=== PATIENT | female | born 1970 | race Caucasian/White ===

== ENCOUNTER 2023-01-18 19:50 | Outpatient (CLI) | payer SELFPAY | END 2023-01-18 19:51 | disposition home or self-care (01) | LOC: AMB 02-03 12:22 | PROVIDERS: PCP Family Medicine; Visit Provider Family Medicine | DX: S39.92XA Unspecified injury of lower back, initial encounter (principal); V43.52XA Car driver injured in collision with other type car in traffic accident, initial encounter; Y92.410 Unspecified street and highway as the place of occurrence of the external cause | CPT/HCPCS: A0998 ==

== ENCOUNTER 2023-10-28 15:03 | Outpatient (CLI) | payer BC, SELFPAY | END 2023-10-28 15:04 | disposition home or self-care (01) | PROVIDERS: PCP Family Medicine; Visit Provider Nurse Practitioner Family | DX: R00.2 Palpitations (principal); R60.0 Localized edema; Z13.220 Encounter for screening for lipoid disorders; R05.8 Other specified cough | CPT/HCPCS: 83735; 84443; 85025 ==

== ENCOUNTER 2023-11-14 14:44 | Outpatient (CLI) | payer BC, SELFPAY | END 2023-11-14 14:45 | disposition home or self-care (01) | LOC: RAD 14:45 | PROVIDERS: PCP Family Medicine; Visit Provider Nurse Practitioner Family | DX: R07.89 Other chest pain (principal); I51.7 Cardiomegaly; R00.2 Palpitations | CPT/HCPCS: 93306 ==

== ENCOUNTER 2024-06-23 13:28 | Outpatient (CLI) | payer BC, SELFPAY | END 2024-06-23 13:29 | disposition home or self-care (01) | PROVIDERS: PCP Nurse Practitioner Family; Visit Provider Nurse Practitioner Family | DX: Z13.228 Encounter for screening for other metabolic disorders (principal); Z13.0 Encounter for screening for diseases of the blood and blood-forming organs and certain disorders involving the immune mechanism | CPT/HCPCS: 80053; 85025 ==

== ENCOUNTER 2024-07-06 08:16 | Day surgery (SDC) | payer BC, SELFPAY ==
[2024-07-06] VITALS (12 sets, daily range): BP systolic 113–133; BP diastolic 65–92; PULSE 68–85; RESP 12–16; TEMP 36.2–36.8; O2SAT 92–98; BMI 35.9
[2024-07-06] MEDS: 0.9 % SODIUM CHLORIDE 500 ML 500 ML IV (08:55)
--- NOTE | 2024-07-06 08:55 | W.PM.H&PU ---
History & Physical Update History & Physical Update H&P Reviewed and patient assessed: No changes noted
[2024-07-06] MEDS: SODIUM CHLORIDE 0.9 % (FLUSH) 10 ML SYRINGE IVF (08:57)
--- NOTE | 2024-07-06 09:10 | PM.GSPRC ---
Operative Note Date of procedure: 07/06/24 Pre-op diagnosis: 1. Symptomatic right shoulder mass. Post-op diagnosis: 1. Right shoulder lipoma. Type of Procedure: 1. Excision of right shoulder lipoma with complex incisional closure. Indications: 54-year-old female was seen in clinic for evaluation of an enlarging right shoulder mass. She was initially evaluated with this mass 2 years ago but did not proceed with surgery. In the last couple years the mass has significantly grown in size. Patient complained of pain sleeping on the right shoulder. She also felt like certain positions cause numbness for her right arm. On clinical exam over the superior right shoulder joint there was a 12 cm in diameter soft tissue mass. This felt soft and not fluid filled, and had limited mobility. This was suspected to be a lipoma. Given patient's clinical history her physical exam, excision of the right shoulder mass in the operating room was recommended. The procedure was discussed in detail. The risks associated procedure including infection, bleeding, and the need for additional procedures as well seroma were all discussed with the patient, and she agreed to proceed. Procedure Description: After discussing the risks and benefits of the procedure, the patient signed informed consent.? The operative site was marked and the patient was brought to the operating room. The patient was then intubated by anesthesia.??She was then placed on the operating table in the lateral decubitus position.? Care was taken to pad the patient's pressure points.? The operative site was then prepped and draped in the usual sterile fashion.? A time-out was then performed. Local anesthetic was injected over the surgical site. A horizontal elliptical skin incision was made with a scalpel over the right shoulder mass. Dermis and subcutaneous fat were divided with cautery. The mass was then circumferentially dissected off surrounding subcutaneous fat and off the shoulder joint and muscle fascia with cautery. Hemostasis achieved with cautery and Vicryl ties. When the mass was free, it was removed. It was measuring 12 x 10.5 cm. The mass had an appearance of lipoma. It was sent to pathology. Skin flaps were then developed anteriorly and posteriorly with cautery. Then local anesthetic was injected the surgical site. The incision was then closed in layers with interrupted 2-0 in 3-0 Vicryl sutures. The length of the incision was 17 cm. The skin was closed with a running 4-0 Monocryl stitch. Steri-Strips and sterile pressure dressings were placed over the incision, and the dressings were secured in place with tape. All counts were correct at the end of the case. ? The patient was then woken and transported to the recovery area in stable condition. ? The patient tolerated the procedure well. Findings: Large lipoma Anesthesia: GETA Surgeon: Dior Cooney MD Estimated blood loss (mL): 10 Additional Specimen Information: 1. Right shoulder mass. Condition: stable Disposition: PACU
[2024-07-06] MEDS: CEFAZOLIN 2 GM INJ IVP (09:30)
[2024-07-06] MEDS: LIDOCAINE 1%-EPI 1:100,000 20 ML INFILTRATI (10:03)
[2024-07-06] MEDS: BUPIVACAINE 0.25% 30 ML INJECTION (10:03)
--- NOTE | 2024-07-06 10:40 | W.ANESCHARGE ---
Anesthesia Charges Start Date/Time Anesthesia Start Date: 07/06/24 Anesthesia Start Time: 09:15 Stop Date/Time Anesthesia Stop Date: 07/06/24 Anesthesia Stop Time: 10:41
--- NOTE | 2024-07-06 11:13 | SUR.PHASEI ---
patient met discharge criteria per anesthesia
[2024-07-06] MEDS: HYDROCODONE-ACETAMIN 5-325 MG 1 TAB PO (11:53)
== END 2024-07-06 12:38 | disposition home or self-care (01) ==
PROVIDERS: PCP Nurse Practitioner Family; Visit Provider Surgery
PROC: (CPT 23071; principal; 2024-07-06 09:30)
DX: D17.21 Benign lipomatous neoplasm of skin and subcutaneous tissue of right arm (principal)
CPT/HCPCS: 23071; 00400; 88304; A9270; J0665; J0690; J1100; J2250; J2405; J2704; J3010; J3490; J7030

== ENCOUNTER 2024-09-21 09:35 | Outpatient (CLI) | payer BC, SELFPAY | END 2024-09-21 09:36 | disposition home or self-care (01) | PROVIDERS: PCP Nurse Practitioner Family; Visit Provider Nurse Practitioner Family | DX: E66.9 Obesity, unspecified (principal); M79.606 Pain in leg, unspecified; R20.2 Paresthesia of skin | CPT/HCPCS: 82550; 82607; 85651; 86140 ==

== ENCOUNTER 2024-11-02 09:48 | Outpatient (CLI) | payer BC, SELFPAY ==
[2024-11-05 00:24] LABS: HPV Source Vaginal; HPV, High Risk by TMA Not Detected
== END 2024-11-02 09:49 | disposition home or self-care (01) ==
PROVIDERS: PCP Nurse Practitioner Family; Visit Provider Nurse Practitioner Family
DX: Z12.4 Encounter for screening for malignant neoplasm of cervix (principal); Z11.51 Encounter for screening for human papillomavirus (HPV)
CPT/HCPCS: 87624; 87625; 88141; 88142

== ENCOUNTER 2024-11-17 10:45 | Outpatient (CLI) | payer BC, SELFPAY ==
--- NOTE | 2024-11-17 10:45 | CRLHL7_ITS ---
For Patients: As a result of the Century Cures Act, medical imaging exams and procedure reports are released immediately into your electronic medical record. You may view this report before your referring provider. If you have questions, please contact your health care provider. DIGITAL DIAGNOSTIC BILATERAL MAMMOGRAM USING TOMOSYNTHESIS AND COMPUTER-AIDED DETECTION RIGHT BREAST ULTRASOUND CLINICAL HISTORY: RIGHT breast lump. COMPARISON: None. TECHNIQUE: Digital BILATERAL mammogram in four projections with computer-aided detection. Tomosynthesis was used in this interpretation. Real-time ultrasound imaging of RIGHT breast with imaging documentation. Scanning was performed by both the technologist and the radiologist. BREAST COMPOSITION: The breasts are heterogeneously dense, which may obscure small masses. FINDINGS: 3D CC/MLO BILATERAL mammogram images submitted. Spiculated mass within the medial RIGHT breast is noted with associated skin retraction. Unremarkable LEFT breast mammogram images. Targeted RIGHT breast ultrasound performed. At 3 o`clock 7 cm from the nipple there is a spiculated hypoechoic mass which measures 2.5 x 2.3 x 2.0 cm. A small adjacent hypoechoic masses present measuring less than 1 cm. There is a RIGHT axillary lymph node with cortical thickening present with the cortex measuring up to 4 millimeters. IMPRESSION: Suspicious mass RIGHT breast 3 o`clock 7 cm from the nipple measuring 2.5 cm with a small adjacent satellite lesion. Suspicious RIGHT axillary lymph node. RECOMMENDATIONS: Ultrasound-guided biopsy of both breast lesions and the RIGHT axillary lymph node. A lay language report of this examination will be provided to the patient. BI-RADS Category 5: Highly suggestive of malignancy Dictated by Ata Quezada MD @ 11/17/2024 12:08:31 PM jj/Dictated by: Ata Quezada MD @ 11/17/2024 12:08:00 PM (Electronically Signed)
--- NOTE | 2024-11-17 11:15 | CRLHL7_ITS ---
For Patients: As a result of the Cures Act, medical imaging exams and procedure reports are released immediately into your electronic medical record. You may view this report before your referring provider. If you have questions, please contact your health care provider. SEE DIGITAL DIAGNOSTIC BILATERAL MAMMOGRAM PERFORMED SAME DAY CRL:mirna bradley/Dictated by: Ata Quezada MD @ 11/17/2024 12:08:00 PM (Electronically Signed)
== END 2024-11-17 10:46 | disposition home or self-care (01) ==
PROVIDERS: PCP Nurse Practitioner Family; Visit Provider Nurse Practitioner Family
DX: N63.10 Unspecified lump in the right breast, unspecified quadrant (principal); R92.333 Mammographic heterogeneous density, bilateral breasts
CPT/HCPCS: 76642; 77066; G0279

== ENCOUNTER 2024-11-20 15:37 | Outpatient (CLI) | payer BC, SELFPAY ==
--- NOTE | 2024-11-20 16:00 | CRLHL7_ITS ---
For Patients: As a result of the Century Cures Act, medical imaging exams and procedure reports are released immediately into your electronic medical record. You may view this report before your referring provider. If you have questions, please contact your health care provider. Indication: fullness of neck, sick/cold for multiple weeks, pain/difficulty while swallowing, voice change Technique: Grayscale and color Doppler ultrasound of the neck soft tissues performed bilaterally. Comparison: None Findings: Mildly prominent right submandibular lymph node measures 12 x 6 x 14 millimeters. No abnormal vascularity. Central fatty hilum is present. No abscess. No enlarged lymph nodes left neck. Impression: Likely reactive right submandibular lymph node. Dictated by Ata Quezada MD @ 11/22/2024 4:40:04 PM (Electronically Signed)
== END 2024-11-20 15:38 | disposition home or self-care (01) ==
LOC: US 15:38
PROVIDERS: PCP Nurse Practitioner Family; Visit Provider Nurse Practitioner Family
DX: R59.9 Enlarged lymph nodes, unspecified (principal); M54.2 Cervicalgia; R13.10 Dysphagia, unspecified
CPT/HCPCS: 76536

== ENCOUNTER 2024-11-27 10:12 | Outpatient (CLI) | payer BC, SELFPAY ==
--- NOTE | 2024-11-27 10:15 | CRLHL7_ITS ---
For Patients: As a result of the Century Cures Act, medical imaging exams and procedure reports are released immediately into your electronic medical record. You may view this report before your referring provider. If you have questions, please contact your health care provider. ULTRASOUND-GUIDED CORE NEEDLE BREAST BIOPSY OF TWO SITES AND POST-BIOPSY DIGITAL MAMMOGRAM FOR BIOPSY MARKER PLACEMENT CLINICAL HISTORY: Indeterminate hypoechoic lesions RIGHT breast. COMPARISON STUDIES: 11/20/2024. TECHNIQUE: Real-time ultrasound with image documentation was used for targeting the breast lesions. A core needle biopsy system was used to obtain core tissue samples with a 16 gauge needle. Post-biopsy CC and ML digital mammograms were obtained to document position of the biopsy marker. CONSENT and TIME OUT: The procedure, risks, and alternatives were explained to the patient and a consent was signed. [place] Protocol was followed including pre-procedure verification that relevant information/documentation was available, reviewed and properly matched to the patient; consent accurate and complete; and equipment and supplies available. Time Out was conducted just prior to starting procedure to verify the four required elements: patient identity, correct side/site marked (if applicable), procedure, relevant images/results properly labeled and displayed (if applicable). PROCEDURE: All biopsies were performed in a similar manner. The patient was positioned supine on the ultrasound table. The breast was prepped with Betadine. 8 cc of 1 percent lidocaine used for local anesthesia. Core samples were obtained. A sterile metal biopsy clip was placed percutaneously to lindsay the lesion position within the breast. The specimens were placed in 10% formalin and sent to the Pathology Department. Pressure was held on the biopsy site until all bleeding subsided. The skin incision was closed with Steri-Strips. An ice pack was positioned over the biopsy site. The patient tolerated the procedure well. Post-biopsy instructions were reviewed with the patient, and a written copy was given to her. SITE A: LATERALITY: RIGHT breast. LESION: Solid irregular hypoechoic mass measuring 2.5 x 2.3 x 2.0 cm at 3 o`clock, 7 cm from the nipple. SUSPICION: High. NUMBER OF SAMPLES: 5. BIOPSY CLIP SHAPE: Oval. PROXIMITY OF CLIP TO TARGET: Within the lesion. SITE B: LATERALITY: RIGHT breast. LESION: Solid hypoechoic nodule measuring 7 x 7 x 6 mm at 2 o`clock, 7 cm from the nipple. SUSPICION: High. NUMBER OF SAMPLES: 5. BIOPSY CLIP SHAPE: HydroMARK. PROXIMITY OF CLIP TO TARGET: Within the lesion. DISTANCE BETWEEN: Sites A and B: 6 mm. IMPRESSION: Ultrasound-guided breast biopsy of two sites. When the pathology report is available, an addendum to this report will be made. ACR not applicable Dictated by Ata Quezada MD @ 11/27/2024 12:23:43 PM /sp SP/Dictated by: Ata Quezada MD @ 11/27/2024 12:23:00 PM (Electronically Signed)
--- NOTE | 2024-11-27 10:15 | CRLHL7_ITS ---
For Patients: As a result of the Century Cures Act, medical imaging exams and procedure reports are released immediately into your electronic medical record. You may view this report before your referring provider. If you have questions, please contact your health care provider. ULTRASOUND-GUIDED RIGHT AXILLARY LYMPH NODE BIOPSY CLINICAL HISTORY: Indeterminate right axillary lymph node COMPARISON STUDIES: 11/20/2024 TECHNIQUE: Real-time ultrasound with image documentation was used for targeting the right axillary lesion. Core biopsy specimens were obtained using an automated gun with an 18-gauge biopsy needle. CONSENT and TIME OUT: The procedure, risks, and alternatives were explained to the patient and a consent was signed. [place] Protocol was followed including pre-procedure verification that relevant information/documentation was available, reviewed and properly matched to the patient; consent accurate and complete; and equipment and supplies available. Time Out was conducted just prior to starting procedure to verify the four required elements: patient identity, correct side/site marked (if applicable), procedure, relevant images/results properly labeled and displayed (if applicable). PROCEDURE: The patient was positioned supine on the ultrasound table. The breast was prepped with ChloraPrep. 8 cc of 1 percent lidocaine used for anesthesia. Core samples were obtained. A sterile metal biopsy clip was placed percutaneously to lindsay the lesion position within the right axilla. The specimens were placed in 10% formalin and sent to the pathology department. Pressure was held on the biopsy site until all bleeding subsided. The skin incision was closed with Steri-Strips. An ice pack was positioned over the biopsy site. Post-biopsy instructions were reviewed with the patient, and a written copy was given to her. LATERALITY: Right axilla LESION: Right axillary lymph node measures 9 x 8 x 9 millimeters with focal cortical thickening which measures up to 5 millimeters SUSPICION FOR MALIGNANCY: High NUMBER OF SAMPLES: 5 BIOPSY CLIP SHAPE: Oval PROXIMITY OF CLIP TO TARGET: Within the lesion IMPRESSION: Ultrasound-guided right axillary lymph node biopsy. When the pathology report is available, an addendum to this report will be made. ACR not applicable Dictated by Ata Quezada MD @ 11/27/2024 12:26:18 PM (Electronically Signed)
--- NOTE | 2024-11-27 11:00 | CRLHL7_ITS ---
For Patients: As a result of the Century Cures Act, medical imaging exams and procedure reports are released immediately into your electronic medical record. You may view this report before your referring provider. If you have questions, please contact your health care provider. PLEASE SEE RIGHT BREAST ULTRASOUND-GUIDED BIOPSIES OF SAME DAY. CRL:sp SP/Dictated by: Ata Quezada MD @ 11/27/2024 12:14:00 PM (Electronically Signed)
== END 2024-11-27 10:13 | disposition home or self-care (01) ==
LOC: US 10:12
PROVIDERS: PCP Nurse Practitioner Family; Visit Provider Nurse Practitioner Family
DX: N63.10 Unspecified lump in the right breast, unspecified quadrant (principal); C50.911 Malignant neoplasm of unspecified site of right female breast; C77.3 Secondary and unspecified malignant neoplasm of axilla and upper limb lymph nodes; R92.8 Other abnormal and inconclusive findings on diagnostic imaging of breast
CPT/HCPCS: 19083; 19084; 38505; 76942; 77065; 88305; 88341; 88342; 88360; 88361; 88377; A4648; A4649

== ENCOUNTER 2024-12-07 08:09 | Outpatient (CLI) | payer BC, SELFPAY ==
--- NOTE | 2024-12-07 08:15 | CRLHL7_ITS ---
For Patients: As a result of the 21st Century Cures Act, medical imaging exams and procedure reports are released immediately into your electronic medical record. You may view this report before your referring provider. If you have questions, please contact your health care provider. BILATERAL BREAST MRI WITHOUT AND WITH GADOLINIUM CLINICAL HISTORY: 54-year-old female with newly diagnosed right breast cancer. Diagnosis was obtained from ultrasound biopsy at the right breast 3 o`clock position 7 cm from nipple measuring 2.5 x 2.3 x 2 centimeters. Oval shaped clip is placed on target A 2nd site measuring 0.7 x 0.7 x 0.6 centimeters 2 o`clock position 7 cm from nipple HydroMARK clip on target. Both biopsies yielded invasive ductal carcinoma. Additionally ultrasound biopsy of an axillary node demonstrates metastatic carcinoma. INDICATION FOR BREAST MRI: Staging of newly diagnosed breast cancer and screening of contralateral breast. Regional lymph nodes will also be assessed. COMPARISON STUDIES: Mammograms 11/17/2024 ultrasound 11/27/2024 CONTRAST: mL Clariscan IV. TECHNIQUE: The patient was positioned prone using a breast coil. Multiple imaging sequences were obtained using 1-1.5 mm thick slices with no gap. The image sequences include T2-weighted STIR in the axial plane, T1-weighted nonfat-saturated gradient echo in the axial plane, pre- and post-contrast T1-weighted FLASH 3D with fat suppression in the axial plane, and T1-weighted FLASH high resolution 3D with fat suppression in the sagittal plane. Image post-processing was performed on a [employer] workstation. Complex 3D rendering including maximum intensity projections (MIPS) and volumetric renderings were obtained to optimize visualization of the extent of pathology and relationship to the nipple, skin, and chest wall. This aids in determining feasibility of breast conservation surgery. Subtraction, multiplanar reconstruction, mean curve determination, and angiogenesis mapping were also performed. The study was technically adequate. FINDINGS: Amount of Fibroglandular Tissue: Heterogeneous fibroglandular tissue. Breast Background Enhancement: Moderate RIGHT Breast: Irregular marginated enhancing mass spanning 3.8 by 3.4 x 2.7 centimeters with heterogeneous enhancement kinetics to include rapid uptake and washout of contrast in the posterior breast around the 3 o`clock position. The oval shaped biopsy clip is along the posterior aspect of this mass. The HydroMARK clip from the 2 o`clock position biopsy is difficult to identify. Findings most likely include both biopsied cancers. There is nipple retraction. LEFT Breast: No suspicious enhancement. Lymph Nodes: Biopsied right axillary lymph node measures 7 millimeters short axis with clip present. Cortex demonstrates slight nodular thickening. A few additional indeterminate axillary lymph nodes are seen measuring 1.7 centimeters by short axis with slight borderline nodular cortical thickening just posterior to the biopsied lymph node /. Additionally superior to the biopsied lymph node is 1.3 centimeter short axis lymph node indeterminate with borderline thickened cortex. No abnormal morphology left axillary lymph nodes IMPRESSIONS AND RECOMMENDATIONS: 1. Irregular marginated enhancing mass spanning 3.8 x 3.4 x 2.7 centimeters in the right breast 3 o`clock position posterior depth most likely reflects the 2 biopsied cancer. The clip from the 2 o`clock biopsy is poorly seen. On review of the mammogram there is segmental pleomorphic microcalcifications extending from the mass to the skin spanning approximately 9 centimeters. If this will exchange consultant additional diagnostic mammographic views and stereotactic biopsy would be recommended. 2. 7 millimeter short axis right axillary lymph node reflects the biopsied lymph node with slight nodular cortical thickening. Two additional indeterminate lymph nodes with borderline thickened cortex. 2. No suspicious findings in the left breast. No abnormal morphology axillary lymph nodes. Surgical and oncologic management per referring physician. BI-RADS Category 6 Dictated by Steffi Hayden MD @ 12/07/2024 11:44:37 AM (Electronically Signed)
== END 2024-12-07 08:10 | disposition home or self-care (01) ==
LOC: MRI 08:10
PROVIDERS: PCP Nurse Practitioner Family; Visit Provider Surgery
DX: C50.811 Malignant neoplasm of overlapping sites of right female breast (principal); C77.3 Secondary and unspecified malignant neoplasm of axilla and upper limb lymph nodes
CPT/HCPCS: 77049; A9575

== ENCOUNTER 2024-12-23 08:07 | Outpatient (CLI) | payer BC, SELFPAY ==
--- NOTE | 2024-12-23 08:00 | CRLHL7_ITS ---
For Patients: As a result of the Century Cures Act, medical imaging exams and procedure reports are released immediately into your electronic medical record. You may view this report before your referring provider. If you have questions, please contact your health care provider. INDICATION: Breast cancer. Comparison : PET-CT scan dated 17 December 2024. Technique : Pelvic MRI with T1, T2, and postcontrast images. Intravenous gadolinium administered. Findings : 4.7 x 4.5 x 4.2 cm fibroid in the left side of the body of the uterus. The uterus is otherwise unremarkable. Normal thickness of the endometrial stripe. 2.4 cm right ovarian fatty lesion shows mild heterogeneous peripheral enhancement. Normal appearance of the left ovary. No other pelvic masses. No adenopathy. No other bony or soft tissue abnormalities identified. Impression : 1. 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 2. 4.7 cm uterine fibroid. Dictated by Phani Hayden MD @ 12/24/2024 2:25:22 PM (Electronically Signed)
== END 2024-12-23 08:08 | disposition home or self-care (01) ==
LOC: MRI 08:09
PROVIDERS: PCP Nurse Practitioner Family; Visit Provider Internal Medicine Hematology & Oncology
DX: C50.919 Malignant neoplasm of unspecified site of unspecified female breast (principal); D25.9 Leiomyoma of uterus, unspecified; Z17.421 Hormone receptor negative with human epidermal growth factor receptor 2 negative status; Z01.818 Encounter for other preprocedural examination
CPT/HCPCS: 72197; 93306; A9575

== ENCOUNTER 2024-12-28 06:12 | Day surgery (SDC) | payer BC, SELFPAY ==
[2024-12-28] VITALS (8 sets, daily range): BP systolic 126–155; BP diastolic 81–104; PULSE 58–68; RESP 16; TEMP 36.4–36.5; O2SAT 95–97; BMI 35.2
[2024-12-28] MEDS: SODIUM CHLORIDE 0.9 % (FLUSH) 10 ML SYRINGE IVF (06:30)
[2024-12-28] MEDS: LACTATED RINGERS 1000 ML 1,000 ML 100 ML IV (06:30)
--- NOTE | 2024-12-28 07:30 | CRLHL7_ITS ---
For Patients: As a result of the Century Cures Act, medical imaging exams and procedure reports are released immediately into your electronic medical record. You may view this report before your referring provider. If you have questions, please contact your health care provider. Indication: Abram Cath Placement Technique: AP fluoroscopic image of the chest. Fluoroscopic time 43.8 seconds. IMPRESSION: Fluoroscopic guidance for Port-A-Cath placement. Dictated by Ata Quezada MD @ 12/28/2024 8:49:56 AM (Electronically Signed)
[2024-12-28] MEDS: CEFAZOLIN 1 GM inj IVP (07:48)
[2024-12-28] MEDS: 0.9% SODIUM CHL 50 ML VIAL INJECTION (08:20)
[2024-12-28] MEDS: HEPARIN 500 UNIT/5 ML SYRINGE IVF (08:22)
[2024-12-28] MEDS: LIDOCAINE 1% MDV 20 ML INJECTION (08:25)
[2024-12-28] MEDS: BUPIVACAINE 0.5% 30 ML INJECTION (08:25)
--- NOTE | 2024-12-28 08:32 | CRLHL7_ITS ---
For Patients: As a result of the Century Cures Act, medical imaging exams and procedure reports are released immediately into your electronic medical record. You may view this report before your referring provider. If you have questions, please contact your health care provider. INDICATION: Postop Port-A-Cath TECHNIQUE: Chest 1 view COMPARISON: 06/23/2024 FINDINGS: Left IJ approach Port-A-Cath is present with the tip at the cavoatrial junction. No pneumothorax. No pleural effusion. IMPRESSION: Port-A-Cath placement. No pneumothorax. Dictated by Ata Quezada MD @ 12/28/2024 11:16:17 AM (Electronically Signed)
--- NOTE | 2024-12-28 08:34 | W.PM.H&PU ---
History & Physical Update History & Physical Update H&P Reviewed and patient assessed: No changes noted H&P Updates: Belinda is here today for port placement. No updates to her health history. Imaging and chart reviewed. No blood thinners. Risks and benefits discussed.
--- NOTE | 2024-12-28 08:35 | PM.GSPRC ---
Operative Note Date of procedure: 12/28/24 Pre-op diagnosis: Right-sided triple negative breast cancer Post-op diagnosis: Same Type of Procedure: Left IJ power port placement with ultrasound and fluoroscopic guidance Indications: The patient is a 54-year-old female with a new diagnosis of right-sided triple negative breast cancer. Port placement was requested for administration of chemotherapy. After discussion of risks and benefits, the patient agreed to proceed. Procedure Description: After discussing the risks and benefits of the procedure, the patient signed informed consent.? The operative site was marked and the patient was brought to the operating room and placed on the operating table in supine position.? Care was taken to pad the patient's pressure points.?? The patient was then given sedation by anesthesia.?? The operative site was then prepped and draped in the usual sterile fashion.? A time-out was then performed. The patient's left internal jugular vein was visualized using ultrasound. Local anesthetic was injected into the skin overlying the vein. This was accessed percutaneously using ultrasound guidance. Using Seldinger technique, a guidewire was threaded through the needle. A skin alfonso was made around the wire. Next, local anesthetic was injected into the skin below the clavicle and along the proposed tract to the neck incision. A skin incision was then made with a 15 blade and a pocket created in the subcutaneous tissue with cautery. A tunneler was then used to thread the catheter from the chest wall pocket to the neck incision. Once this was done fluoroscopy was brought into the field. Over the wire the tract was dilated using fluoroscopy. The wire and the dilator were then removed leaving the sheath in the vein. Through this, the catheter was threaded. Using fluoroscopy, the catheter was positioned into the distal SVC. The catheter was noted to flush and aspirate easily. The catheter was then connected to the port. The port was placed in the pocket and secured in place with 2 0 Prolene sutures. It was noted to flush and aspirate easily. This was then locked with heparinized saline. The skin was closed with absorbable suture. Glue was applied. Instrument sponge and needle counts were correct at the end of the case. The patient was woken and taken to the PACU in stable condition. The patient tolerated the procedure well. Findings: Left IJ power port placed in the low SVC Implants: Power port Anesthesia: MAC Surgeon: Vannessa Mtz MD Estimated blood loss (mL): 5 Condition: stable Disposition: same day
--- NOTE | 2024-12-28 08:59 | P.ANES_ITS ---
Anesthesia Charges Start Date/Time Anesthesia Start Date: 12/28/24 Anesthesia Start Time: 07:29 Stop Date/Time Anesthesia Stop Date: 12/28/24 Anesthesia Stop Time: 08:42 Coding CPT Codes CPT Codes: ANESTH VASCULAR ACCESS - 46149 ([id number]) P2 - PATIENT W/MILD SYST DISEASE, QX - DYNAMITE PACKING MACHINE FEEDER SVC W/ MD MED DIRECTION, QK - PASTE MIXING SUPERVISOR 2-4 CNCRNT ANES PROC
--- NOTE | 2024-12-28 08:59 | W.ANESCHARGE ---
Anesthesia Charges Start Date/Time Anesthesia Start Date: 12/28/24 Anesthesia Start Time: 07:29 Stop Date/Time Anesthesia Stop Date: 12/28/24 Anesthesia Stop Time: 08:42 Coding CPT Codes CPT Codes: ANESTH VASCULAR ACCESS - 98876 ([id number]) P2 - PATIENT W/MILD SYST DISEASE, QX - EXTENSION WORK DIRECTOR SVC W/ MD MED DIRECTION, QK - SALES PORTER 2-4 CNCRNT ANES PROC
--- NOTE | 2024-12-28 09:16 | P.ANES_ITS ---
Anesthesia Charges Start Date/Time Anesthesia Start Date: 12/28/24 Anesthesia Start Time: 07:29 Stop Date/Time Anesthesia Stop Date: 12/28/24 Anesthesia Stop Time: 08:42 Coding CPT Codes CPT Codes: ANESTH VASCULAR ACCESS - 68543 ([id number]) QK - TOW BAR DRIVER 2-4 CNCRNT ANES PROC, QX - ASSISTANT SVC W/ MD MED DIRECTION, P2 - PATIENT W/MILD SYST DISEASE
--- NOTE | 2024-12-28 09:16 | W.ANESCHARGE ---
Anesthesia Charges Start Date/Time Anesthesia Start Date: 12/28/24 Anesthesia Start Time: 07:29 Stop Date/Time Anesthesia Stop Date: 12/28/24 Anesthesia Stop Time: 08:42 Coding CPT Codes CPT Codes: ANESTH VASCULAR ACCESS - 50422 ([id number]) QK - ASSIGNMENT EDITOR 2-4 CNCRNT ANES PROC, QX - PICK AND SHOVEL WORKER SVC W/ MD MED DIRECTION, P2 - PATIENT W/MILD SYST DISEASE
[2024-12-28] MEDS: fentaNYL 100 MCG/2 ML inj 50 MCG IVP (09:22)
[2024-12-28] MEDS: HYDROCODONE-ACETAMIN 5-325 MG 1 TAB PO (10:00)
== END 2024-12-28 10:22 | disposition home or self-care (01) ==
PROVIDERS: PCP Nurse Practitioner Family; Visit Provider Surgery
PROC: (CPT 36561; principal; 2024-12-28 07:30)
DX: Z45.2 Encounter for adjustment and management of vascular access device (principal); C50.811 Malignant neoplasm of overlapping sites of right female breast; Z17.421 Hormone receptor negative with human epidermal growth factor receptor 2 negative status
CPT/HCPCS: 36561; 00532; 71045; 76000; 76998; J2003; A9270; C1788; J0665; J0690; J1100; J1642; J2250; J2405; J2704; J3010; J3490; J7120

== ENCOUNTER 2025-04-09 09:12 | Outpatient (CLI) | payer BC, SELFPAY ==
--- NOTE | 2025-04-09 09:15 | CRLHL7_ITS ---
For Patients: As a result of the Cures Act, medical imaging exams and procedure reports are released immediately into your electronic medical record. You may view this report before your referring provider. If you have questions, please contact your health care provider. LEFT AXILLARY ULTRASOUND CLINICAL HISTORY: LEFT breast axillary lump. COMPARISON: Breast MRI 12/07/2024. TECHNIQUE: Real-time ultrasound imaging of LEFT axilla with imaging documentation. FINDINGS: Targeted LEFT axillary ultrasound performed. Normal fat-filled LEFT axillary lymph nodes are present which measure up to 2.9 x 2.4 x 2.1 cm, not significantly changed. No abnormal vascularity. No cortical thickening. IMPRESSION: Similar benign LEFT axillary lymph nodes. RECOMMENDATIONS: Clinical follow-up. Results and recommendations were discussed with the patient at the time of the exam. A lay language report of this examination will be provided to the patient. BI-RADS Category 6: Known Biopsy-Proven Malignancy Dictated by Ata Quezada MD @ 04/09/2025 10:24:56 AM jj/Dictated by: Ata Quezada MD @ 04/09/2025 10:24:00 AM (Electronically Signed)
== END 2025-04-09 09:13 | disposition home or self-care (01) ==
LOC: US 09:12
PROVIDERS: PCP Nurse Practitioner Family; Visit Provider Internal Medicine Hematology & Oncology
DX: C50.919 Malignant neoplasm of unspecified site of unspecified female breast (principal); R59.0 Localized enlarged lymph nodes; Z17.421 Hormone receptor negative with human epidermal growth factor receptor 2 negative status
CPT/HCPCS: 76882

== ENCOUNTER 2025-04-26 10:11 | Outpatient (CLI) | payer BC, SELFPAY | END 2025-04-26 10:12 | disposition home or self-care (01) | PROVIDERS: PCP Nurse Practitioner Family; Visit Provider Internal Medicine Cardiovascular Disease | DX: I51.7 Cardiomegaly (principal); I35.1 Nonrheumatic aortic (valve) insufficiency; I34.0 Nonrheumatic mitral (valve) insufficiency; I07.1 Rheumatic tricuspid insufficiency; Z51.81 Encounter for therapeutic drug level monitoring | CPT/HCPCS: 93308; 93321; 93325 ==

== ENCOUNTER 2025-05-31 10:51 | Outpatient (CLI) | payer BC, SELFPAY ==
--- NOTE | 2025-05-31 10:45 | CRLHL7_ITS ---
For Patients: As a result of the Century Cures Act, medical imaging exams and procedure reports are released immediately into your electronic medical record. You may view this report before your referring provider. If you have questions, please contact your health care provider. Indication: patient had a previous lipoma removed in 2023 on the posterior right shoulder. Recently feeling fullness in this area, no pain. Patient has breast cancer. Technique: Grayscale and color Doppler ultrasound of the right posterior shoulder soft tissues performed in the area of concern Comparison: Ultrasound 11/20/2024 Findings: Nonvascular tissue is present within the right posterior shoulder subcutaneous tissues which measures 3.6 x 1.1 x 2.4 cm. No shadowing lesion or fluid collection. Impression: Benign-appearing tissue within the area of concern may represent normal muscle versus lipoma. No suspicious findings. Dictated by Ata Quezada MD @ 05/31/2025 2:10:01 PM (Electronically Signed)
== END 2025-05-31 10:52 | disposition home or self-care (01) ==
LOC: US 10:52
PROVIDERS: PCP Nurse Practitioner Family; Visit Provider Internal Medicine Hematology & Oncology
DX: D17.21 Benign lipomatous neoplasm of skin and subcutaneous tissue of right arm (principal)
CPT/HCPCS: 76536

== ENCOUNTER 2025-06-15 14:00 | Outpatient (RCR) | payer BC, SELFPAY ==
[2024-12-30 15:38] LABS: Hematocrit* 43.2 % (33.0-51.0); Hemoglobin* 14.3 gm/dL (12.0-16.0); Immature Granulocytes Abs Auto 0.01 K/uL (0.00-0.30); Immature Granulocytes Pct Auto 0.2 %; Lymphocytes Absolute Auto 2.59 K/uL (0.90-2.90); Mean Corpuscular HGB Conc 33 gm/dL (32-36); Mean Corpuscular Hemoglobin 29 pg (26-34); Mean Corpuscular Volume 86 fL (80-100); RDW Coefficient of Variation % 12.5 % (11.5-15.5); Red Blood Count* 5.00 m/uL (4.00-5.20); White Blood Count* 6.31 K/uL (4.50-11.00)
[2024-12-30 15:41] LABS: Slide Review Reflex No
[2024-12-30 15:54] LABS: Albumin* 4.5 g/dL (3.3-5.0); Chloride* 103 mmol/L (96-114); Sodium* 138 mmol/L (135-149)
[2024-12-30 15:55] LABS: Potassium* 3.7 mmol/L (3.6-5.1)
[2024-12-30 15:57] LABS: Alanine Aminotransferase* 52 U/L (4-35); Anion Gap 7 mEq/L (7-15); Aspartate Amino Transferase* 51 U/L (12-35); Blood Urea Nitrogen* 16 mg/dL (7-30); Carbon Dioxide* 28 mmol/L (20-32); Creatinine* 0.8 mg/dL (0.5-1.5); Est. Creatinine Clearance* 56.40; Estimated Glomerular Filt Rate 86 ml/min
[2024-12-30 15:58] LABS: Alkaline Phosphatase* 75 U/L (40-150); Bilirubin Total* 0.6 mg/dL (0.1-1.5); Calcium* 10.0 mg/dL (8.4-10.6); Glucose* 103 mg/dL (60-115); Total Protein* 7.2 g/dL (6.0-8.3)
--- NOTE | 2024-12-30 16:30 | ONC.NURNOTE ---
I met with patient and her partner Margarita for chemothearpy teaching. Contents of the chemotherapy binder were discussed. Side effects of chemotherapy reviewed. Consent obtained. Patient instructed on side effects to report and how to contact the provider both during office hours and after. Cryotherapy discussed. Patient understands that she will need to bring her ice packs each week to treatment frozen. Tentative plan is to start treatment 12/31 pending final pathology report.
--- NOTE | 2024-12-31 16:47 | ONC.NURNOTE ---
Patient informed that her repeat biopsy done 12/24 is concordant with her previous biopsy, triple negative. We will proceed with chemo (Taxol/Carbo/Pembro) tomorrow. Patient verbalizes understanding.
[2025-01-01 08:10] VITALS: BP 134/83; PULSE 76; TEMP 36.5; O2SAT 94
[2025-01-01] MEDS: SODIUM CHLORIDE 0.9 % (FLUSH) 10 ML SYRINGE IVF ×2 (08:59→12:46)
[2025-01-01] MEDS: PEMBROLIZUMAB 200 MG, TUBING PRIMARY 1 EACH, In-line 0.2 micron filter set 1 EACH in 0.... 216 MG IVPB (09:02)
[2025-01-01] MEDS: dexAMETHasone 20 MG in 0.9 % SODIUM CHLORIDE 100 ml 100 ML 306 MG IVPB (09:35)
[2025-01-01] MEDS: FAMOTIDINE 20 MG, diphenhydrAMINE 50 MG in 0.9 % SODIUM CHLORIDE 100 ml 100 ML 309 MG IVPB (10:06)
[2025-01-01] MEDS: HEPARIN 500 UNIT/5 ML SYRINGE IVF (12:45)
--- NOTE | 2025-01-04 08:42 | ONC.NURNOTE ---
Call to patient in follow up to her new start Taxol/Carbo/Pembro. Patient states that she is doing overall well. She felt fatigued yesterday and that continues some today. She is eating and drinking well. Patient shares that she is struggling with how she wants to approach the treatment of her cancer. She understands that modern medicine is good but she fears what chemo will do to her body. She is meeting with a holistic medicine team today and exploring what her options are for a more holistic approach to treating her cancer. I reiterated the importance of open communication and letting us know if she starts any alternative treatments. I also told her that we could discuss a referral to the [facility] team in [place]. Patient verbalizes understanding.
[2025-01-07 11:25] VITALS: BP 124/82; PULSE 66; TEMP 36.3; O2SAT 95
[2025-01-07 12:09] LABS: Hematocrit* 38.1 % (33.0-51.0); Hemoglobin* 12.9 gm/dL (12.0-16.0); Immature Granulocytes Abs Auto 0.03 K/uL (0.00-0.30); Immature Granulocytes Pct Auto 0.6 %; Lymphocytes Absolute Auto 1.87 K/uL (0.90-2.90); Mean Corpuscular HGB Conc 34 gm/dL (32-36); Mean Corpuscular Hemoglobin 29 pg (26-34); Mean Corpuscular Volume 86 fL (80-100); RDW Coefficient of Variation % 12.5 % (11.5-15.5); Red Blood Count* 4.43 m/uL (4.00-5.20); White Blood Count* 4.71 K/uL (4.50-11.00)
[2025-01-07 12:14] LABS: Slide Review Reflex No
[2025-01-07 12:27] LABS: Albumin* 4.0 g/dL (3.3-5.0); Chloride* 102 mmol/L (96-114)
[2025-01-07 12:28] LABS: Potassium* 4.1 mmol/L (3.6-5.1); Sodium* 136 mmol/L (135-149)
[2025-01-07 12:30] LABS: Alanine Aminotransferase* 34 U/L (4-35); Anion Gap 5 mEq/L (7-15); Aspartate Amino Transferase* 31 U/L (12-35); Bilirubin Total* 0.3 mg/dL (0.1-1.5); Blood Urea Nitrogen* 17 mg/dL (7-30); Carbon Dioxide* 29 mmol/L (20-32); Creatinine* 0.7 mg/dL (0.5-1.5); Est. Creatinine Clearance* 64.46; Estimated Glomerular Filt Rate 101 ml/min; Total Protein* 6.5 g/dL (6.0-8.3)
[2025-01-07 12:31] LABS: Alkaline Phosphatase* 81 U/L (40-150); Calcium* 9.7 mg/dL (8.4-10.6); Glucose* 98 mg/dL (60-115)
[2025-01-07] MEDS: dexAMETHasone 20 MG in 0.9 % SODIUM CHLORIDE 100 ml 100 ML 306 MG IVPB (13:29)
[2025-01-07] MEDS: SODIUM CHLORIDE 0.9 % (FLUSH) 10 ML SYRINGE IVF ×2 (13:45→16:55)
[2025-01-07] MEDS: FAMOTIDINE 20 MG, diphenhydrAMINE 50 MG in 0.9 % SODIUM CHLORIDE 100 ml 100 ML 309 MG IVPB (14:07)
[2025-01-07] MEDS: HEPARIN 500 UNIT/5 ML SYRINGE IVF (16:55)
[2025-01-14 15:56] LABS: Hematocrit* 39.1 % (33.0-51.0); Hemoglobin* 13.0 gm/dL (12.0-16.0); Immature Granulocytes Pct Auto 0.3 %; Mean Corpuscular HGB Conc 33 gm/dL (32-36); Mean Corpuscular Hemoglobin 29 pg (26-34); Mean Corpuscular Volume 87 fL (80-100); RDW Coefficient of Variation % 12.8 % (11.5-15.5); Red Blood Count* 4.51 m/uL (4.00-5.20); White Blood Count* 3.92 K/uL (4.50-11.00)
[2025-01-14 15:59] LABS: Albumin* 4.2 g/dL (3.3-5.0); Chloride* 105 mmol/L (96-114); Potassium* 4.2 mmol/L (3.6-5.1); Sodium* 138 mmol/L (135-149)
[2025-01-14 16:01] LABS: Blood Urea Nitrogen* 13 mg/dL (7-30); Creatinine* 0.6 mg/dL (0.5-1.5); Est. Creatinine Clearance* 75.20; Estimated Glomerular Filt Rate 105 ml/min
[2025-01-14 16:02] LABS: Alanine Aminotransferase* 60 U/L (4-35); Alkaline Phosphatase* 79 U/L (40-150); Anion Gap 3 mEq/L (7-15); Aspartate Amino Transferase* 42 U/L (12-35); Bilirubin Total* 0.4 mg/dL (0.1-1.5); Calcium* 9.8 mg/dL (8.4-10.6); Carbon Dioxide* 30 mmol/L (20-32); Glucose* 92 mg/dL (60-115); Total Protein* 6.6 g/dL (6.0-8.3)
[2025-01-14 16:05] LABS: Immature Granulocytes Abs Auto 0.00 K/uL (0.00-0.30); Lymphocytes Absolute Auto 1.90 K/uL (0.90-2.90); Slide Review Reflex No
[2025-01-15 13:14] VITALS: BP 120/83; PULSE 76; RESP 15; TEMP 36.5; O2SAT 96
[2025-01-15] MEDS: dexAMETHasone 20 MG in 0.9 % SODIUM CHLORIDE 100 ml 100 ML 306 MG IVPB (13:57)
[2025-01-15] MEDS: FAMOTIDINE 20 MG, diphenhydrAMINE 50 MG in 0.9 % SODIUM CHLORIDE 100 ml 100 ML 309 MG IVPB (14:20)
[2025-01-15] MEDS: HEPARIN 500 UNIT/5 ML SYRINGE IVF (16:26)
[2025-01-15] MEDS: SODIUM CHLORIDE 0.9 % (FLUSH) 10 ML SYRINGE IVF (16:26)
[2025-01-21 08:47] LABS: Hematocrit* 39.2 % (33.0-51.0); Hemoglobin* 12.9 gm/dL (12.0-16.0); Immature Granulocytes Pct Auto 0.3 %; Mean Corpuscular HGB Conc 33 gm/dL (32-36); Mean Corpuscular Hemoglobin 29 pg (26-34); Mean Corpuscular Volume 87 fL (80-100); RDW Coefficient of Variation % 13.0 % (11.5-15.5); Red Blood Count* 4.49 m/uL (4.00-5.20); White Blood Count* 3.18 K/uL (4.50-11.00)
[2025-01-21 08:49] LABS: Immature Granulocytes Abs Auto 0.00 K/uL (0.00-0.30); Lymphocytes Absolute Auto 1.70 K/uL (0.90-2.90); Slide Review Reflex No
[2025-01-21 09:01] LABS: Albumin* 4.1 g/dL (3.3-5.0); Chloride* 106 mmol/L (96-114); Potassium* 3.9 mmol/L (3.6-5.1); Sodium* 137 mmol/L (135-149)
[2025-01-21 09:04] LABS: Alanine Aminotransferase* 58 U/L (4-35); Alkaline Phosphatase* 80 U/L (40-150); Anion Gap 2 mEq/L (7-15); Aspartate Amino Transferase* 35 U/L (12-35); Bilirubin Total* 0.6 mg/dL (0.1-1.5); Blood Urea Nitrogen* 13 mg/dL (7-30); Carbon Dioxide* 29 mmol/L (20-32); Creatinine* 0.7 mg/dL (0.5-1.5); Est. Creatinine Clearance* 64.46; Estimated Glomerular Filt Rate 101 ml/min; Total Protein* 6.6 g/dL (6.0-8.3)
[2025-01-21 09:05] LABS: Calcium* 9.5 mg/dL (8.4-10.6); Glucose* 103 mg/dL (60-115)
[2025-01-21] MEDS: SODIUM CHLORIDE 0.9 % (FLUSH) 10 ML SYRINGE IVF ×2 (10:02→13:34)
[2025-01-21] MEDS: PEMBROLIZUMAB 200 MG, TUBING PRIMARY 1 EACH, In-line 0.2 micron filter set 1 EACH in 0.... 216 MG IVPB (10:12)
[2025-01-21] MEDS: dexAMETHasone 20 MG in 0.9 % SODIUM CHLORIDE 100 ml 100 ML 306 MG IVPB (10:46)
[2025-01-21] MEDS: FAMOTIDINE 20 MG, diphenhydrAMINE 50 MG in 0.9 % SODIUM CHLORIDE 100 ml 100 ML 309 MG IVPB (11:15)
[2025-01-21] MEDS: HEPARIN 500 UNIT/5 ML SYRINGE IVF (13:34)
[2025-01-28] MEDS: SODIUM CHLORIDE 0.9 % (FLUSH) 10 ML SYRINGE IVF (10:04)
[2025-01-28] MEDS: HEPARIN 500 UNIT/5 ML SYRINGE IVF (10:04)
[2025-01-28 10:07] LABS: Hematocrit* 38.7 % (33.0-51.0); Hemoglobin* 12.8 gm/dL (12.0-16.0); Immature Granulocytes Pct Auto 0.3 %; Mean Corpuscular HGB Conc 33 gm/dL (32-36); Mean Corpuscular Hemoglobin 29 pg (26-34); Mean Corpuscular Volume 87 fL (80-100); RDW Coefficient of Variation % 13.3 % (11.5-15.5); Red Blood Count* 4.47 m/uL (4.00-5.20); White Blood Count* 3.49 K/uL (4.50-11.00)
[2025-01-28 10:11] LABS: Immature Granulocytes Abs Auto 0.00 K/uL (0.00-0.30); Lymphocytes Absolute Auto 1.60 K/uL (0.90-2.90); Slide Review Reflex No
[2025-01-28 10:27] LABS: Albumin* 3.9 g/dL (3.3-5.0); Chloride* 108 mmol/L (96-114); Potassium* 4.0 mmol/L (3.6-5.1); Sodium* 138 mmol/L (135-149)
[2025-01-28 10:30] LABS: Alanine Aminotransferase* 37 U/L (4-35); Alkaline Phosphatase* 67 U/L (40-150); Anion Gap 1 mEq/L (7-15); Aspartate Amino Transferase* 30 U/L (12-35); Bilirubin Total* 0.4 mg/dL (0.1-1.5); Blood Urea Nitrogen* 15 mg/dL (7-30); Carbon Dioxide* 29 mmol/L (20-32); Creatinine* 0.7 mg/dL (0.5-1.5); Est. Creatinine Clearance* 64.46; Estimated Glomerular Filt Rate 101 ml/min; Total Protein* 6.4 g/dL (6.0-8.3)
[2025-01-28 10:31] LABS: Calcium* 9.7 mg/dL (8.4-10.6); Glucose* 100 mg/dL (60-115)
[2025-01-29 12:19] VITALS: BP 114/77; PULSE 72; RESP 16; TEMP 36.2; O2SAT 96
[2025-01-29] MEDS: SODIUM CHLORIDE 0.9 % (FLUSH) 10 ML SYRINGE IVF ×2 (12:45→15:26)
[2025-01-29] MEDS: dexAMETHasone 20 MG in 0.9 % SODIUM CHLORIDE 100 ml 100 ML 306 MG IVPB (12:47)
[2025-01-29] MEDS: FAMOTIDINE 20 MG, diphenhydrAMINE 50 MG in 0.9 % SODIUM CHLORIDE 100 ml 100 ML 400 MG IVPB (13:12)
[2025-01-29] MEDS: HEPARIN 500 UNIT/5 ML SYRINGE IVF (15:26)
[2025-02-04 16:23] LABS: Albumin* 4.2 g/dL (3.3-5.0); Chloride* 105 mmol/L (96-114); Sodium* 137 mmol/L (135-149)
[2025-02-04 16:24] LABS: Potassium* 3.5 mmol/L (3.6-5.1)
[2025-02-04 16:26] LABS: Alanine Aminotransferase* 40 U/L (4-35); Alkaline Phosphatase* 76 U/L (40-150); Anion Gap 7 mEq/L (7-15); Aspartate Amino Transferase* 32 U/L (12-35); Bilirubin Total* 0.7 mg/dL (0.1-1.5); Blood Urea Nitrogen* 18 mg/dL (7-30); Carbon Dioxide* 25 mmol/L (20-32); Creatinine* 0.6 mg/dL (0.5-1.5); Est. Creatinine Clearance* 75.20; Estimated Glomerular Filt Rate 105 ml/min; Total Protein* 6.8 g/dL (6.0-8.3)
[2025-02-04 16:27] LABS: Calcium* 9.7 mg/dL (8.4-10.6); Glucose* 96 mg/dL (60-115)
[2025-02-04 16:36] LABS: Hematocrit* 37.5 % (33.0-51.0); Hemoglobin* 12.7 gm/dL (12.0-16.0); Immature Granulocytes Pct Auto 0.3 %; Lymphocytes Absolute Auto 1.80 K/uL (0.90-2.90); Mean Corpuscular HGB Conc 34 gm/dL (32-36); Mean Corpuscular Hemoglobin 29 pg (26-34); Mean Corpuscular Volume 86 fL (80-100); RDW Coefficient of Variation % 13.2 % (11.5-15.5); Red Blood Count* 4.34 m/uL (4.00-5.20); White Blood Count* 3.65 K/uL (4.50-11.00)
[2025-02-04 16:47] LABS: Immature Granulocytes Abs Auto 0.00 K/uL (0.00-0.30); Slide Review Reflex No
[2025-02-05 11:59] VITALS: BP 120/81; PULSE 76; RESP 16; TEMP 36.7; O2SAT 97
[2025-02-05] MEDS: SODIUM CHLORIDE 0.9 % (FLUSH) 10 ML SYRINGE IVF ×2 (12:18→15:07)
[2025-02-05] MEDS: dexAMETHasone 20 MG in 0.9 % SODIUM CHLORIDE 100 ml 100 ML 306 MG IVPB (12:27)
[2025-02-05] MEDS: FAMOTIDINE 20 MG, diphenhydrAMINE 25 MG in 0.9 % SODIUM CHLORIDE 100 ml 100 ML 309 MG IVPB (12:53)
[2025-02-05] MEDS: HEPARIN 500 UNIT/5 ML SYRINGE IVF (15:07)
[2025-02-11 15:05] LABS: Hematocrit* 36.3 % (33.0-51.0); Hemoglobin* 12.1 gm/dL (12.0-16.0); Immature Granulocytes Pct Auto 0.9 %; Mean Corpuscular HGB Conc 33 gm/dL (32-36); Mean Corpuscular Hemoglobin 29 pg (26-34); Mean Corpuscular Volume 87 fL (80-100); RDW Coefficient of Variation % 13.8 % (11.5-15.5); Red Blood Count* 4.16 m/uL (4.00-5.20); White Blood Count* 3.45 K/uL (4.50-11.00)
[2025-02-11 15:18] LABS: Chloride* 104 mmol/L (96-114)
[2025-02-11 15:19] LABS: Albumin* 4.1 g/dL (3.3-5.0); Potassium* 3.7 mmol/L (3.6-5.1); Sodium* 135 mmol/L (135-149)
[2025-02-11 15:21] LABS: Alanine Aminotransferase* 39 U/L (4-35); Anion Gap 5 mEq/L (7-15); Aspartate Amino Transferase* 33 U/L (12-35); Blood Urea Nitrogen* 14 mg/dL (7-30); Carbon Dioxide* 26 mmol/L (20-32); Creatinine* 0.7 mg/dL (0.5-1.5); Est. Creatinine Clearance* 114.02; Estimated Glomerular Filt Rate 101 ml/min
[2025-02-11 15:22] LABS: Alkaline Phosphatase* 67 U/L (40-150); Bilirubin Total* 0.7 mg/dL (0.1-1.5); Calcium* 9.9 mg/dL (8.4-10.6); Glucose* 146 mg/dL (60-115); Total Protein* 6.6 g/dL (6.0-8.3)
[2025-02-11 15:32] LABS: Immature Granulocytes Abs Auto 0.00 K/uL (0.00-0.30)
[2025-02-11 15:33] LABS: Lymphocytes Absolute Auto 1.70 K/uL (0.90-2.90); Slide Review Reflex No
[2025-02-12 12:00] VITALS: BP 124/86; PULSE 83; RESP 16; TEMP 36.2; O2SAT 97
[2025-02-12] MEDS: PEMBROLIZUMAB 200 MG, TUBING PRIMARY 1 EACH, In-line 0.2 micron filter set 1 EACH in 0.... 216 MG IVPB (12:23)
[2025-02-12] MEDS: dexAMETHasone 20 MG in 0.9 % SODIUM CHLORIDE 100 ml 100 ML 300 MG IVPB (13:05)
[2025-02-12] MEDS: FAMOTIDINE 20 MG, diphenhydrAMINE 25 MG in 0.9 % SODIUM CHLORIDE 100 ml 100 ML 400 MG IVPB (13:29)
[2025-02-12] MEDS: HEPARIN 500 UNIT/5 ML SYRINGE IVF (15:52)
[2025-02-12] MEDS: SODIUM CHLORIDE 0.9 % (FLUSH) 10 ML SYRINGE IVF (15:52)
[2025-02-18 15:26] LABS: Hematocrit* 35.9 % (33.0-51.0); Hemoglobin* 12.1 gm/dL (12.0-16.0); Immature Granulocytes Pct Auto 0.4 %; Mean Corpuscular HGB Conc 34 gm/dL (32-36); Mean Corpuscular Hemoglobin 29 pg (26-34); Mean Corpuscular Volume 87 fL (80-100); RDW Coefficient of Variation % 14.3 % (11.5-15.5); Red Blood Count* 4.11 m/uL (4.00-5.20); White Blood Count* 2.57 K/uL (4.50-11.00)
[2025-02-18 15:49] LABS: Immature Granulocytes Abs Auto 0.00 K/uL (0.00-0.30); Lymphocytes Absolute Auto 1.60 K/uL (0.90-2.90)
[2025-02-18 15:50] LABS: Slide Review Reflex No
[2025-02-18 15:51] LABS: Albumin* 4.1 g/dL (3.3-5.0); Chloride* 103 mmol/L (96-114); Potassium* 3.8 mmol/L (3.6-5.1); Sodium* 136 mmol/L (135-149)
[2025-02-18 15:54] LABS: Alanine Aminotransferase* 69 U/L (4-35); Alkaline Phosphatase* 79 U/L (40-150); Anion Gap 4 mEq/L (7-15); Aspartate Amino Transferase* 53 U/L (12-35); Bilirubin Total* 0.6 mg/dL (0.1-1.5); Blood Urea Nitrogen* 15 mg/dL (7-30); Carbon Dioxide* 29 mmol/L (20-32); Creatinine* 0.6 mg/dL (0.5-1.5); Est. Creatinine Clearance* 131.87; Estimated Glomerular Filt Rate 105 ml/min; Total Protein* 6.5 g/dL (6.0-8.3)
[2025-02-18 15:55] LABS: Calcium* 9.9 mg/dL (8.4-10.6); Glucose* 91 mg/dL (60-115)
[2025-02-19] MEDS: HEPARIN 500 UNIT/5 ML SYRINGE IVF (10:56)
[2025-02-19] MEDS: SODIUM CHLORIDE 0.9 % (FLUSH) 10 ML SYRINGE IVF (10:56)
[2025-02-19 14:06] VITALS: BP 120/81; PULSE 87; RESP 16; TEMP 36.5; O2SAT 97
--- NOTE | 2025-02-19 14:08 | ONC.NURNOTE ---
Addendum entered by Jena Hatfield 02/22/25 13:54: Discussed lab results with Dina Vila PA-C. We will NOT dose reduce at this time. Patient scheduled for labs 02/25 and treatment 02/26. Original Note: Pt's ANC 0.7 today. VSS. Discussed with Sandy Howell APRN. Chemotherapy to be held today, pt to return in 1 week. Jena breast healthcare account manager will discuss possible dose changes with provider on Saturday. Pt given handout on neutropenic precautions and when to call [facility] or go to ER. Pt verbalized understanding of plan of care.
[2025-02-25 15:19] LABS: Hematocrit* 37.0 % (33.0-51.0); Hemoglobin* 12.6 gm/dL (12.0-16.0); Immature Granulocytes Abs Auto 0.00 K/uL (0.00-0.30); Immature Granulocytes Pct Auto 0.0 %; Mean Corpuscular HGB Conc 34 gm/dL (32-36); Mean Corpuscular Hemoglobin 30 pg (26-34); Mean Corpuscular Volume 87 fL (80-100); RDW Coefficient of Variation % 14.7 % (11.5-15.5); Red Blood Count* 4.24 m/uL (4.00-5.20); White Blood Count* 2.71 K/uL (4.50-11.00)
[2025-02-25 15:20] LABS: Lymphocytes Absolute Auto 1.50 K/uL (0.90-2.90); Slide Review Reflex No
[2025-02-25 15:42] LABS: Albumin* 4.3 g/dL (3.3-5.0); Chloride* 104 mmol/L (96-114); Sodium* 137 mmol/L (135-149)
[2025-02-25 15:43] LABS: Potassium* 3.7 mmol/L (3.6-5.1)
[2025-02-25 15:45] LABS: Alanine Aminotransferase* 66 U/L (4-35); Alkaline Phosphatase* 83 U/L (40-150); Anion Gap 7 mEq/L (7-15); Aspartate Amino Transferase* 48 U/L (12-35); Bilirubin Total* 0.8 mg/dL (0.1-1.5); Blood Urea Nitrogen* 9 mg/dL (7-30); Carbon Dioxide* 26 mmol/L (20-32); Creatinine* 0.7 mg/dL (0.5-1.5); Est. Creatinine Clearance* 115.02; Estimated Glomerular Filt Rate 101 ml/min; Total Protein* 6.9 g/dL (6.0-8.3)
[2025-02-25 15:46] LABS: Calcium* 10.2 mg/dL (8.4-10.6); Glucose* 83 mg/dL (60-115)
[2025-02-26] MEDS: SODIUM CHLORIDE 0.9 % (FLUSH) 10 ML SYRINGE IVF (15:01)
[2025-02-26] MEDS: HEPARIN 500 UNIT/5 ML SYRINGE IVF (15:01)
--- NOTE | 2025-03-01 08:13 | ONC.NURNOTE ---
Plan to recheck CBC Mon, give Zarxio if appproved. Plan to keep labs Mon, Tx , Zarxio and Sat.
[2025-03-01 10:22] VITALS: BP 121/84; PULSE 76; RESP 18; TEMP 36.6; O2SAT 96
[2025-03-01 10:38] LABS: Hematocrit* 37.0 % (33.0-51.0); Hemoglobin* 12.7 gm/dL (12.0-16.0); Immature Granulocytes Abs Auto 0.00 K/uL (0.00-0.30); Immature Granulocytes Pct Auto 0.0 %; Mean Corpuscular HGB Conc 34 gm/dL (32-36); Mean Corpuscular Hemoglobin 30 pg (26-34); Mean Corpuscular Volume 87 fL (80-100); RDW Coefficient of Variation % 15.0 % (11.5-15.5); Red Blood Count* 4.24 m/uL (4.00-5.20); White Blood Count* 2.83 K/uL (4.50-11.00)
[2025-03-01] MEDS: FILGRASTIM-SNDZ 300 MCG/0.5 ML SYRINGE SUBCUT (10:56)
[2025-03-01 10:59] LABS: Lymphocytes Absolute Auto 1.50 K/uL (0.90-2.90)
[2025-03-01 11:00] LABS: Slide Review Reflex No
[2025-03-02 10:43] VITALS: BP 119/78; PULSE 76; RESP 16; TEMP 36.7; O2SAT 97
[2025-03-02] MEDS: SODIUM CHLORIDE 0.9 % (FLUSH) 10 ML SYRINGE IVF ×2 (11:08→14:14)
[2025-03-02] MEDS: dexAMETHasone 20 MG in 0.9 % SODIUM CHLORIDE 100 ml 100 ML 306 MG IVPB (11:17)
--- NOTE | 2025-03-02 11:20 | ONC.NURNOTE ---
Pt letter for trading PTO given to pt; copy in pt's chart.
[2025-03-02] MEDS: FAMOTIDINE 20 MG, diphenhydrAMINE 25 MG in 0.9 % SODIUM CHLORIDE 100 ml 100 ML 308 MG IVPB (11:44)
[2025-03-02] MEDS: HEPARIN 500 UNIT/5 ML SYRINGE IVF (14:14)
[2025-03-04 15:09] VITALS: BP 108/66; PULSE 74; RESP 17; TEMP 36.4; O2SAT 95
[2025-03-04] MEDS: FILGRASTIM-SNDZ 300 MCG/0.5 ML SYRINGE SUBCUT (15:22)
[2025-03-05] MEDS: FILGRASTIM-SNDZ 300 MCG/0.5 ML SYRINGE SUBCUT (15:21)
[2025-03-09 11:03] VITALS: BP 139/83; PULSE 71; RESP 16; TEMP 36.8; O2SAT 98
[2025-03-09] MEDS: SODIUM CHLORIDE 0.9 % (FLUSH) 10 ML SYRINGE IVF ×2 (11:20→12:47)
[2025-03-09 11:34] LABS: Hematocrit* 35.2 % (33.0-51.0); Hemoglobin* 12.0 gm/dL (12.0-16.0); Immature Granulocytes Pct Auto 0.5 %; Mean Corpuscular HGB Conc 34 gm/dL (32-36); Mean Corpuscular Hemoglobin 30 pg (26-34); Mean Corpuscular Volume 89 fL (80-100); RDW Coefficient of Variation % 14.2 % (11.5-15.5); Red Blood Count* 3.97 m/uL (4.00-5.20)
[2025-03-09 11:44] LABS: Immature Granulocytes Abs Auto 0.00 K/uL (0.00-0.30); Lymphocytes Absolute Auto 1.60 K/uL (0.90-2.90); Slide Review Reflex No; White Blood Count* 1.98 K/uL (4.50-11.00)
[2025-03-09 11:55] LABS: Albumin* 3.9 g/dL (3.3-5.0); Chloride* 105 mmol/L (96-114); Sodium* 136 mmol/L (135-149)
[2025-03-09 11:56] LABS: Potassium* 4.0 mmol/L (3.6-5.1)
[2025-03-09 11:58] LABS: Alanine Aminotransferase* 40 U/L (4-35); Alkaline Phosphatase* 80 U/L (40-150); Anion Gap 5 mEq/L (7-15); Aspartate Amino Transferase* 30 U/L (12-35); Bilirubin Total* 0.4 mg/dL (0.1-1.5); Blood Urea Nitrogen* 16 mg/dL (7-30); Carbon Dioxide* 26 mmol/L (20-32); Creatinine* 0.6 mg/dL (0.5-1.5); Est. Creatinine Clearance* 131.20; Estimated Glomerular Filt Rate 105 ml/min; Total Protein* 6.4 g/dL (6.0-8.3)
[2025-03-09 11:59] LABS: Calcium* 9.4 mg/dL (8.4-10.6); Glucose* 101 mg/dL (60-115)
[2025-03-09] MEDS: FILGRASTIM-SNDZ 300 MCG/0.5 ML SYRINGE SUBCUT (12:47)
[2025-03-09] MEDS: HEPARIN 500 UNIT/5 ML SYRINGE IVF (12:47)
--- NOTE | 2025-03-09 12:56 | ONC.NURNOTE ---
ANC 0.2 ; chemotherapy held. Gave Xarxio 300 mcg SC x 1. Sandy Soto APRN discussing next steps with Dr. Poon, possibilities including increasing Xarxio dose and frequency. Potential for Xarxio Wed and Thurs with CBC recheck / tentative treatment Fri of this week.
--- NOTE | 2025-03-10 13:57 | ONC.NURNOTE ---
03/[address] Poon. Patient informed that our plan moving forward will be to give a dose of G-CSF tomorrow at a higher dose, pending insurance approval. We will reassess labs on 03/12 and plan to treat if ANC has improved. Carboplatin will be held for C3D15: 03/12 and C4D1: 03/19. We will give G-CSF the [id number] after each chemotherapy. Chemotherapy will be given on Fridays for remaining treatments. Patient verbalizes understanding.
[2025-03-11 13:15] VITALS: BP 132/84; PULSE 72; RESP 16; TEMP 36.1; O2SAT 96
[2025-03-12 09:17] VITALS: BP 128/78; PULSE 80; RESP 17; TEMP 36; O2SAT 94
[2025-03-12] MEDS: SODIUM CHLORIDE 0.9 % (FLUSH) 10 ML SYRINGE IVF (09:30)
[2025-03-12 09:51] LABS: Hematocrit* 36.3 % (33.0-51.0); Hemoglobin* 12.0 gm/dL (12.0-16.0); Immature Granulocytes Pct Auto 4.3 %; Mean Corpuscular HGB Conc 33 gm/dL (32-36); Mean Corpuscular Hemoglobin 30 pg (26-34); Mean Corpuscular Volume 90 fL (80-100); RDW Coefficient of Variation % 15.1 % (11.5-15.5); Red Blood Count* 4.02 m/uL (4.00-5.20); White Blood Count* 19.46 K/uL (4.50-11.00)
[2025-03-12 09:58] LABS: Albumin* 3.8 g/dL (3.3-5.0); Chloride* 104 mmol/L (96-114); Potassium* 3.6 mmol/L (3.6-5.1); Sodium* 139 mmol/L (135-149)
[2025-03-12 10:01] LABS: Alanine Aminotransferase* 40 U/L (4-35); Alkaline Phosphatase* 97 U/L (40-150); Anion Gap 6 mEq/L (7-15); Aspartate Amino Transferase* 37 U/L (12-35); Bilirubin Total* 0.5 mg/dL (0.1-1.5); Blood Urea Nitrogen* 18 mg/dL (7-30); Carbon Dioxide* 29 mmol/L (20-32); Creatinine* 0.8 mg/dL (0.5-1.5); Est. Creatinine Clearance* 98.51; Estimated Glomerular Filt Rate 86 ml/min; Total Protein* 6.3 g/dL (6.0-8.3)
[2025-03-12 10:02] LABS: Calcium* 9.4 mg/dL (8.4-10.6); Glucose* 100 mg/dL (60-115)
[2025-03-12 10:07] LABS: Immature Granulocytes Abs Auto 0.80 K/uL (0.00-0.30); Lymphocytes Absolute Auto 3.40 K/uL (0.90-2.90); Slide Review Reflex No
[2025-03-12] MEDS: dexAMETHasone 20 MG in 0.9 % SODIUM CHLORIDE 100 ml 100 ML 400 MG IVPB (11:37)
[2025-03-12] MEDS: FAMOTIDINE 20 MG, diphenhydrAMINE 25 MG in 0.9 % SODIUM CHLORIDE 100 ml 100 ML 309 MG IVPB (11:58)
[2025-03-12] MEDS: PACLitaxeL 145 MG, TUBING PRIMARY 1 EACH, In-line 0.2 micron filter set 1 EACH in 0.9 %... 275 MG IV (12:33)
[2025-03-12] MEDS: HEPARIN 500 UNIT/5 ML SYRINGE IVF (14:30)
[2025-03-15 14:09] VITALS: BP 113/76; PULSE 86; RESP 16; TEMP 36.6; O2SAT 95
[2025-03-15 14:52] LABS: Hematocrit* 36.8 % (33.0-51.0); Hemoglobin* 12.3 gm/dL (12.0-16.0); Immature Granulocytes Pct Auto 0.4 %; Mean Corpuscular HGB Conc 33 gm/dL (32-36); Mean Corpuscular Hemoglobin 30 pg (26-34); Mean Corpuscular Volume 89 fL (80-100); RDW Coefficient of Variation % 14.3 % (11.5-15.5); Red Blood Count* 4.12 m/uL (4.00-5.20); White Blood Count* 2.77 K/uL (4.50-11.00)
[2025-03-15 14:54] LABS: Immature Granulocytes Abs Auto 0.00 K/uL (0.00-0.30); Lymphocytes Absolute Auto 1.40 K/uL (0.90-2.90); Slide Review Reflex No
[2025-03-15] MEDS: SODIUM CHLORIDE 0.9 % (FLUSH) 10 ML SYRINGE IVF (15:17)
[2025-03-15] MEDS: HEPARIN 500 UNIT/5 ML SYRINGE IVF (15:17)
[2025-03-16 14:09] VITALS: BP 112/72; PULSE 96; RESP 16; TEMP 36.6; O2SAT 94
[2025-03-17 14:11] VITALS: BP 106/71; PULSE 90; RESP 17; TEMP 36.4; O2SAT 94
[2025-03-17 14:48] LABS: Hematocrit* 35.8 % (33.0-51.0); Hemoglobin* 12.0 gm/dL (12.0-16.0); Immature Granulocytes Abs Auto 0.23 K/uL (0.00-0.30); Immature Granulocytes Pct Auto 3.2 %; Lymphocytes Absolute Auto 1.98 K/uL (0.90-2.90); Mean Corpuscular HGB Conc 34 gm/dL (32-36); Mean Corpuscular Hemoglobin 30 pg (26-34); Mean Corpuscular Volume 89 fL (80-100); RDW Coefficient of Variation % 14.3 % (11.5-15.5); Red Blood Count* 4.03 m/uL (4.00-5.20); White Blood Count* 7.29 K/uL (4.50-11.00)
[2025-03-17 14:53] LABS: Slide Review Reflex No
[2025-03-17 15:06] LABS: Albumin* 4.1 g/dL (3.3-5.0); Chloride* 104 mmol/L (96-114); Potassium* 3.6 mmol/L (3.6-5.1); Sodium* 139 mmol/L (135-149)
[2025-03-17 15:09] LABS: Alanine Aminotransferase* 48 U/L (4-35); Alkaline Phosphatase* 100 U/L (40-150); Anion Gap 7 mEq/L (7-15); Aspartate Amino Transferase* 36 U/L (12-35); Bilirubin Total* 1.2 mg/dL (0.1-1.5); Blood Urea Nitrogen* 15 mg/dL (7-30); Carbon Dioxide* 28 mmol/L (20-32); Creatinine* 0.7 mg/dL (0.5-1.5); Est. Creatinine Clearance* 110.91; Estimated Glomerular Filt Rate 101 ml/min; Total Protein* 6.6 g/dL (6.0-8.3)
[2025-03-17 15:10] LABS: Calcium* 9.3 mg/dL (8.4-10.6); Glucose* 117 mg/dL (60-115)
[2025-03-17] MEDS: HEPARIN 500 UNIT/5 ML SYRINGE IVF (15:19)
[2025-03-17] MEDS: SODIUM CHLORIDE 0.9 % (FLUSH) 10 ML SYRINGE IVF (15:19)
[2025-03-17 16:51] LABS: HCG Quantitative* 2.85 mIU/mL
[2025-03-19] MEDS: PEMBROLIZUMAB 200 MG, TUBING PRIMARY 1 EACH, In-line 0.2 micron filter set 1 EACH in 0.... 216 MG IVPB (11:15)
[2025-03-19] MEDS: dexAMETHasone 20 MG in 0.9 % SODIUM CHLORIDE 100 ml 100 ML 408 MG IVPB (11:46)
[2025-03-19] MEDS: SODIUM CHLORIDE 0.9 % (FLUSH) 10 ML SYRINGE IVF ×2 (12:01→14:27)
[2025-03-19] MEDS: FAMOTIDINE 20 MG, diphenhydrAMINE 25 MG in 0.9 % SODIUM CHLORIDE 100 ml 100 ML 309 MG IVPB (12:06)
[2025-03-19] MEDS: PACLitaxeL 145 MG, TUBING PRIMARY 1 EACH, In-line 0.2 micron filter set 1 EACH in 0.9 %... 274 MG IV (12:35)
[2025-03-19] MEDS: HEPARIN 500 UNIT/5 ML SYRINGE IVF (14:27)
[2025-03-22 08:29] VITALS: BP 124/85; PULSE 76; RESP 17; TEMP 36.8; O2SAT 95
[2025-03-22 09:05] LABS: Hematocrit* 32.6 % (33.0-51.0); Hemoglobin* 10.8 gm/dL (12.0-16.0); Immature Granulocytes Pct Auto 0.4 %; Mean Corpuscular HGB Conc 33 gm/dL (32-36); Mean Corpuscular Hemoglobin 30 pg (26-34); Mean Corpuscular Volume 90 fL (80-100); RDW Coefficient of Variation % 14.6 % (11.5-15.5); Red Blood Count* 3.63 m/uL (4.00-5.20); White Blood Count* 2.29 K/uL (4.50-11.00)
[2025-03-22 09:17] LABS: Immature Granulocytes Abs Auto 0.00 K/uL (0.00-0.30); Lymphocytes Absolute Auto 1.50 K/uL (0.90-2.90); Slide Review Reflex No
[2025-03-24 08:29] VITALS: BP 121/79; PULSE 81; RESP 16; TEMP 36.4; O2SAT 95
[2025-03-24 08:59] LABS: Hematocrit* 34.0 % (33.0-51.0); Hemoglobin* 11.3 gm/dL (12.0-16.0); Immature Granulocytes Abs Auto 1.70 K/uL (0.00-0.30); Immature Granulocytes Pct Auto 9.3 %; Mean Corpuscular HGB Conc 33 gm/dL (32-36); Mean Corpuscular Hemoglobin 30 pg (26-34); Mean Corpuscular Volume 91 fL (80-100); RDW Coefficient of Variation % 14.7 % (11.5-15.5); Red Blood Count* 3.75 m/uL (4.00-5.20); White Blood Count* 18.25 K/uL (4.50-11.00)
[2025-03-24 09:01] LABS: Lymphocytes Absolute Auto 3.10 K/uL (0.90-2.90); Slide Review Reflex Yes
[2025-03-24 09:15] LABS: Chloride* 102 mmol/L (96-114)
[2025-03-24 09:16] LABS: Albumin* 3.9 g/dL (3.3-5.0); Potassium* 3.8 mmol/L (3.6-5.1); Sodium* 137 mmol/L (135-149)
[2025-03-24 09:18] LABS: Blood Urea Nitrogen* 19 mg/dL (7-30); Creatinine* 0.8 mg/dL (0.5-1.5); Est. Creatinine Clearance* 95.92; Estimated Glomerular Filt Rate 86 ml/min
[2025-03-24 09:19] LABS: Alanine Aminotransferase* 35 U/L (4-35); Alkaline Phosphatase* 93 U/L (40-150); Anion Gap 5 mEq/L (7-15); Aspartate Amino Transferase* 32 U/L (12-35); Bilirubin Total* 0.6 mg/dL (0.1-1.5); Calcium* 9.3 mg/dL (8.4-10.6); Carbon Dioxide* 30 mmol/L (20-32); Glucose* 100 mg/dL (60-115); Total Protein* 6.2 g/dL (6.0-8.3)
[2025-03-24 09:48] LABS: Slide Review Acceptable Review (Acceptable)
--- NOTE | 2025-03-24 15:16 | PC.SOCIAL ---
Machine Setter Supervisor Consult: EDDIE called patient and spoke with her about resources/supports that she may need. Patient explained that originally she thought she needed support with her partner's son and the shift they were experiencing with him due to her new diagnosis and not being able to provide him as much attention as he needs. Patient discussed that they were able to find support with close friends/coworkers who are able to take him in and let him live with him while patient's treatment is on-going. Patient reports that this is working well right now. Patient did have questions about financial support due to medical bills piling up. SW explained she would look into resources and call patient back. SW called patient back and discussed the [employer] [facility] and [facility]. SW asked if patient would like this sent via email as well and patient agreed. EDDIE sent via email to [email or web address]. Patient was appreciative of support. Patient states right now she feels she is managing finances, but wanted to know what was available in case it becomes too much. SW expressed understanding. EDDIE informed that patient can contact EDDIE again if other needs arise.
[2025-03-26 10:06] VITALS: BP 125/84; PULSE 82; RESP 16; TEMP 36.3; O2SAT 95
[2025-03-26] MEDS: dexAMETHasone 20 MG in 0.9 % SODIUM CHLORIDE 100 ml 100 ML 400 MG IVPB (11:12)
[2025-03-26] MEDS: FAMOTIDINE 20 MG, diphenhydrAMINE 25 MG in 0.9 % SODIUM CHLORIDE 100 ml 100 ML 309 MG IVPB (11:32)
[2025-03-26] MEDS: PACLitaxeL 145 MG, TUBING PRIMARY 1 EACH, In-line 0.2 micron filter set 1 EACH in 0.9 %... 274 MG IV (12:05)
[2025-03-26] MEDS: HEPARIN 500 UNIT/5 ML SYRINGE IVF (13:50)
[2025-03-26] MEDS: SODIUM CHLORIDE 0.9 % (FLUSH) 10 ML SYRINGE IVF (13:50)
[2025-03-29 08:40] VITALS: BP 124/82; PULSE 72; RESP 16; TEMP 37; O2SAT 96
[2025-03-29 09:04] LABS: Hematocrit* 34.3 % (33.0-51.0); Hemoglobin* 11.4 gm/dL (12.0-16.0); Immature Granulocytes Pct Auto 0.7 %; Mean Corpuscular HGB Conc 33 gm/dL (32-36); Mean Corpuscular Hemoglobin 30 pg (26-34); Mean Corpuscular Volume 90 fL (80-100); RDW Coefficient of Variation % 15.1 % (11.5-15.5); Red Blood Count* 3.82 m/uL (4.00-5.20); White Blood Count* 2.87 K/uL (4.50-11.00)
[2025-03-29 09:08] LABS: Immature Granulocytes Abs Auto 0.00 K/uL (0.00-0.30); Lymphocytes Absolute Auto 1.70 K/uL (0.90-2.90)
[2025-03-29 09:09] LABS: Slide Review Reflex No
[2025-03-29] MEDS: SODIUM CHLORIDE 0.9 % (FLUSH) 10 ML SYRINGE IVF (09:30)
[2025-03-29] MEDS: HEPARIN 500 UNIT/5 ML SYRINGE IVF (09:30)
[2025-03-30 08:39] VITALS: BP 116/75; PULSE 88; RESP 16; TEMP 36.8; O2SAT 96
[2025-04-05 08:47] VITALS: BP 122/79; PULSE 69; RESP 16; TEMP 36.1; O2SAT 97
[2025-04-05 09:30] LABS: Albumin* 3.8 g/dL (3.3-5.0); Chloride* 105 mmol/L (96-114)
[2025-04-05 09:31] LABS: Potassium* 4.1 mmol/L (3.6-5.1); Sodium* 138 mmol/L (135-149)
[2025-04-05 09:33] LABS: Alanine Aminotransferase* 33 U/L (4-35); Anion Gap 6 mEq/L (7-15); Aspartate Amino Transferase* 32 U/L (12-35); Blood Urea Nitrogen* 17 mg/dL (7-30); Carbon Dioxide* 27 mmol/L (20-32); Creatinine* 0.7 mg/dL (0.5-1.5); Est. Creatinine Clearance* 112.48; Estimated Glomerular Filt Rate 101 ml/min; Hematocrit* 35.8 % (33.0-51.0); Hemoglobin* 11.7 gm/dL (12.0-16.0); Immature Granulocytes Pct Auto 1.2 %; Mean Corpuscular HGB Conc 33 gm/dL (32-36); Mean Corpuscular Hemoglobin 30 pg (26-34); Mean Corpuscular Volume 92 fL (80-100); RDW Coefficient of Variation % 16.0 % (11.5-15.5); Red Blood Count* 3.88 m/uL (4.00-5.20); White Blood Count* 4.05 K/uL (4.50-11.00)
[2025-04-05 09:34] LABS: Alkaline Phosphatase* 89 U/L (40-150); Bilirubin Total* 0.4 mg/dL (0.1-1.5); Calcium* 9.4 mg/dL (8.4-10.6); Glucose* 101 mg/dL (60-115)
[2025-04-05 09:48] LABS: Immature Granulocytes Abs Auto 0.00 K/uL (0.00-0.30); Lymphocytes Absolute Auto 1.80 K/uL (0.90-2.90); Slide Review Reflex No
[2025-04-05 10:10] LABS: Total Protein* 6.2 g/dL (6.0-8.3)
[2025-04-05] MEDS: dexAMETHasone 20 MG in 0.9 % SODIUM CHLORIDE 100 ml 100 ML 400 MG IVPB (10:44)
[2025-04-05] MEDS: SODIUM CHLORIDE 0.9 % (FLUSH) 10 ML SYRINGE IVF ×2 (10:45→13:20)
[2025-04-05] MEDS: FAMOTIDINE 20 MG, diphenhydrAMINE 25 MG in 0.9 % SODIUM CHLORIDE 100 ml 100 ML 309 MG IVPB (11:08)
[2025-04-05] MEDS: PACLitaxeL 145 MG, TUBING PRIMARY 1 EACH, In-line 0.2 micron filter set 1 EACH in 0.9 %... 274 MG IV (11:43)
[2025-04-05] MEDS: HEPARIN 500 UNIT/5 ML SYRINGE IVF (13:20)
[2025-04-06 08:42] VITALS: BP 105/71; PULSE 78; RESP 16; TEMP 36.5; O2SAT 95
--- NOTE | 2025-04-06 08:52 | ONC.NURNOTE ---
Pt present at [facility] today for Zarxio injection. RN noted pt's chemo end time yesterday was 1:30 PM. Zarxio is to be given 24 hours after chemo. Pt did NOT get an injection today. She will get an injection tomorrow, 04/07/2025 as she will be at [facility] for MD appt. We will give her 2nd dose on , 04/08/2025. Pharmacy aware.
[2025-04-07 10:35] VITALS: BP 133/95; PULSE 69; RESP 16; TEMP 36.4; O2SAT 95
[2025-04-08 10:50] VITALS: BP 118/79; PULSE 80; RESP 16; TEMP 36.7; O2SAT 98
[2025-04-12 08:28] VITALS: BP 133/95; PULSE 72; RESP 17; TEMP 37; O2SAT 97
[2025-04-12 08:54] LABS: Hematocrit* 35.8 % (33.0-51.0); Hemoglobin* 11.8 gm/dL (12.0-16.0); Immature Granulocytes Pct Auto 0.9 %; Mean Corpuscular HGB Conc 33 gm/dL (32-36); Mean Corpuscular Hemoglobin 30 pg (26-34); Mean Corpuscular Volume 92 fL (80-100); RDW Coefficient of Variation % 15.6 % (11.5-15.5); Red Blood Count* 3.90 m/uL (4.00-5.20); White Blood Count* 4.27 K/uL (4.50-11.00)
[2025-04-12 08:57] LABS: Immature Granulocytes Abs Auto 0.00 K/uL (0.00-0.30); Lymphocytes Absolute Auto 2.20 K/uL (0.90-2.90); Slide Review Reflex No
[2025-04-12 09:08] LABS: Chloride* 106 mmol/L (96-114)
[2025-04-12 09:09] LABS: Albumin* 3.9 g/dL (3.3-5.0); Potassium* 3.9 mmol/L (3.6-5.1); Sodium* 138 mmol/L (135-149)
[2025-04-12 09:11] LABS: Blood Urea Nitrogen* 19 mg/dL (7-30); Creatinine* 0.6 mg/dL (0.5-1.5); Est. Creatinine Clearance* 130.00; Estimated Glomerular Filt Rate 105 ml/min
[2025-04-12 09:12] LABS: Alanine Aminotransferase* 32 U/L (4-35); Alkaline Phosphatase* 88 U/L (40-150); Anion Gap 5 mEq/L (7-15); Aspartate Amino Transferase* 27 U/L (12-35); Bilirubin Total* 0.5 mg/dL (0.1-1.5); Calcium* 9.6 mg/dL (8.4-10.6); Carbon Dioxide* 27 mmol/L (20-32); Glucose* 104 mg/dL (60-115); Total Protein* 6.5 g/dL (6.0-8.3)
[2025-04-12] MEDS: PEMBROLIZUMAB 200 MG, TUBING PRIMARY 1 EACH, In-line 0.2 micron filter set 1 EACH in 0.... 216 MG IVPB (10:21)
[2025-04-12] MEDS: DEXAMETHASONE 10 MG/ML PF IVP (10:57)
[2025-04-12] MEDS: FOSAPREPITANT 150 MG inj 150 MG in 0.9 % SODIUM CHLORIDE 250 ml 250 ML 800 MG IVPB (11:06)
[2025-04-12] MEDS: DOXOrubicin 2 MG/ML inj 110 MG IVP (11:38)
[2025-04-12] MEDS: cycloPHOSphamide 1,100 MG, TUBING SECONDARY 1 EACH in 0.9 % SODIUM CHLORIDE 250 ml 250 ML 511 MG IV (11:38)
[2025-04-12] MEDS: SODIUM CHLORIDE 0.9 % (FLUSH) 10 ML SYRINGE IVF (12:40)
[2025-04-12] MEDS: HEPARIN 500 UNIT/5 ML SYRINGE IVF (12:40)
--- NOTE | 2025-04-12 14:07 | ONC.NURNOTE ---
Rx for compazine resent to patients pharmacy. Patient never received.
[2025-04-13 14:40] VITALS: BP 127/86; PULSE 70; RESP 16; TEMP 36.6; O2SAT 97
[2025-04-13] MEDS: PEGFILGRASTIM-JMDB (Fulphila) 6 MG/0.6 ML SUBCUT (14:53)
[2025-05-04 10:42] LABS: Hematocrit* 36.0 % (33.0-51.0); Hemoglobin* 11.7 gm/dL (12.0-16.0); Immature Granulocytes Abs Auto 0.00 K/uL (0.00-0.30); Immature Granulocytes Pct Auto 0.0 %; Lymphocytes Absolute Auto 1.71 K/uL (0.90-2.90); Mean Corpuscular HGB Conc 33 gm/dL (32-36); Mean Corpuscular Hemoglobin 31 pg (26-34); Mean Corpuscular Volume 95 fL (80-100); RDW Coefficient of Variation % 15.4 % (11.5-15.5); Red Blood Count* 3.79 m/uL (4.00-5.20); White Blood Count* 5.78 K/uL (4.50-11.00)
[2025-05-04] MEDS: ALTEPLASE 2 MG INJ IVF (10:46)
[2025-05-04 10:48] LABS: Slide Review Reflex No
[2025-05-04 11:03] LABS: Albumin* 3.9 g/dL (3.3-5.0); Chloride* 108 mmol/L (96-114); Potassium* 4.2 mmol/L (3.6-5.1); Sodium* 141 mmol/L (135-149)
[2025-05-04 11:06] LABS: Alanine Aminotransferase* 25 U/L (4-35); Alkaline Phosphatase* 92 U/L (40-150); Anion Gap 7 mEq/L (7-15); Aspartate Amino Transferase* 26 U/L (12-35); Bilirubin Total* 0.4 mg/dL (0.1-1.5); Blood Urea Nitrogen* 16 mg/dL (7-30); Calcium* 10.0 mg/dL (8.4-10.6); Carbon Dioxide* 26 mmol/L (20-32); Creatinine* 0.7 mg/dL (0.5-1.5); Est. Creatinine Clearance* 107.35; Estimated Glomerular Filt Rate 101 ml/min; Glucose* 103 mg/dL (60-115); Total Protein* 6.8 g/dL (6.0-8.3)
[2025-05-04] MEDS: PEMBROLIZUMAB 200 MG, TUBING PRIMARY 1 EACH, In-line 0.2 micron filter set 1 EACH in 0.... 216 MG IVPB (12:04)
[2025-05-04] MEDS: SODIUM CHLORIDE 0.9 % (FLUSH) 10 ML SYRINGE IVF ×2 (12:41→14:18)
[2025-05-04] MEDS: DEXAMETHASONE 10 MG/ML PF IVP (12:41)
[2025-05-04] MEDS: FOSAPREPITANT 150 MG inj 150 MG in 0.9 % SODIUM CHLORIDE 250 ml 250 ML 510 MG IVPB (12:47)
[2025-05-04] MEDS: DOXOrubicin 2 MG/ML inj 110 MG IVP (13:27)
[2025-05-04] MEDS: cycloPHOSphamide 1,100 MG, TUBING SECONDARY 1 EACH in 0.9 % SODIUM CHLORIDE 250 ml 250 ML 511 MG IV (13:28)
[2025-05-04] MEDS: HEPARIN 500 UNIT/5 ML SYRINGE IVF (14:18)
[2025-05-05] MEDS: PEGFILGRASTIM-JMDB (Fulphila) 6 MG/0.6 ML SUBCUT (16:02)
--- NOTE | 2025-05-14 16:30 | ONC.NURNOTE ---
Patient called to report that she had received a call from Dr. Cooper's office with a critical lab result. Patient had her labs drawn in his office on 05-12 (about a week after her last cycle of chemotherapy). Her WBC was 2.7 and her ANC was 0.4. Patient is asymptomatic and feels really good. At the time of the phone call, patient was in [place]. I explained to patient that this is a critical result but we are not surprised by these values since she was at her [place] when the labs were drawn. Since she is asymptomatic, we would just ask that she follows neutropenic precautions and seek immediate attention with any signs of infection and/or temperature 100.4 or greater. Patient verbalizes understanding. Sandy Howell APRN notified and agrees with recommendations.
[2025-05-24] MEDS: DEXAMETHASONE 10 MG/ML PF IVP (11:41)
[2025-05-24] MEDS: SODIUM CHLORIDE 0.9 % (FLUSH) 10 ML SYRINGE IVF ×2 (11:41→14:14)
[2025-05-24] MEDS: PEMBROLIZUMAB 200 MG, TUBING PRIMARY 1 EACH, In-line 0.2 micron filter set 1 EACH in 0.... 216 MG IVPB (11:58)
[2025-05-24] MEDS: FOSAPREPITANT 150 MG inj 150 MG in 0.9 % SODIUM CHLORIDE 250 ml 250 ML 510 MG IVPB (12:32)
[2025-05-24] MEDS: DOXOrubicin 2 MG/ML inj 110 MG IVP (13:10)
[2025-05-24] MEDS: cycloPHOSphamide 1,100 MG, TUBING SECONDARY 1 EACH in 0.9 % SODIUM CHLORIDE 250 ml 250 ML 511 MG IV (13:29)
[2025-05-24] MEDS: HEPARIN 500 UNIT/5 ML SYRINGE IVF (14:14)
[2025-05-24] MEDS: 0.9 % SODIUM CHLORIDE 500 ML IV (14:37)
[2025-05-25 14:59] VITALS: BP 108/73; PULSE 72; RESP 17; TEMP 36.6; O2SAT 100
[2025-05-25] MEDS: PEGFILGRASTIM-JMDB (Fulphila) 6 MG/0.6 ML SUBCUT (15:11)
[2025-06-14 09:16] LABS: Hematocrit* 32.1 % (33.0-51.0); Hemoglobin* 10.4 gm/dL (12.0-16.0); Immature Granulocytes Abs Auto 0.00 K/uL (0.00-0.30); Immature Granulocytes Pct Auto 0.0 %; Mean Corpuscular HGB Conc 32 gm/dL (32-36); Mean Corpuscular Hemoglobin 32 pg (26-34); Mean Corpuscular Volume 97 fL (80-100); RDW Coefficient of Variation % 15.3 % (11.5-15.5); Red Blood Count* 3.30 m/uL (4.00-5.20); White Blood Count* 2.77 K/uL (4.50-11.00)
[2025-06-14 09:19] LABS: Lymphocytes Absolute Auto 1.20 K/uL (0.90-2.90); Slide Review Reflex No
[2025-06-14 09:38] LABS: Albumin* 4.0 g/dL (3.3-5.0); Chloride* 102 mmol/L (96-114); Potassium* 3.7 mmol/L (3.6-5.1); Sodium* 137 mmol/L (135-149)
[2025-06-14 09:41] LABS: Alanine Aminotransferase* 35 U/L (4-35); Alkaline Phosphatase* 79 U/L (40-150); Anion Gap 10 mEq/L (7-15); Aspartate Amino Transferase* 53 U/L (12-35); Bilirubin Total* 0.7 mg/dL (0.1-1.5); Blood Urea Nitrogen* 11 mg/dL (7-30); Carbon Dioxide* 25 mmol/L (20-32); Creatinine* 0.6 mg/dL (0.5-1.5); Est. Creatinine Clearance* 130.82; Estimated Glomerular Filt Rate 105 ml/min; Total Protein* 6.3 g/dL (6.0-8.3)
[2025-06-14 09:42] LABS: Calcium* 9.8 mg/dL (8.4-10.6); Glucose* 124 mg/dL (60-115)
[2025-06-14] MEDS: DEXAMETHASONE 10 MG/ML PF IVP (10:59)
[2025-06-14] MEDS: SODIUM CHLORIDE 0.9 % (FLUSH) 10 ML SYRINGE IVF ×2 (10:59→13:15)
[2025-06-14] MEDS: PEMBROLIZUMAB 200 MG, TUBING PRIMARY 1 EACH, In-line 0.2 micron filter set 1 EACH in 0.... 216 MG IVPB (11:14)
[2025-06-14] MEDS: FOSAPREPITANT 150 MG inj 150 MG in 0.9 % SODIUM CHLORIDE 250 ml 250 ML 510 MG IVPB (11:47)
[2025-06-14] MEDS: DOXOrubicin 2 MG/ML inj 110 MG IVP (12:23)
[2025-06-14] MEDS: cycloPHOSphamide 1,100 MG, TUBING SECONDARY 1 EACH in 0.9 % SODIUM CHLORIDE 250 ml 250 ML 511 MG IV (12:41)
[2025-06-14] MEDS: HEPARIN 500 UNIT/5 ML SYRINGE IVF (13:15)
[2025-06-15 14:14] VITALS: BP 117/75; PULSE 79; RESP 16; TEMP 36.4; O2SAT 99
[2025-06-15] MEDS: PEGFILGRASTIM-JMDB (Fulphila) 6 MG/0.6 ML SUBCUT (14:42)
== END 2025-06-19 23:59 | disposition home or self-care (01) ==
LOC: CCIC 14:00
PROVIDERS: Clinical Nurse Specialist; PCP Nurse Practitioner Family; Referring Provider Nurse Practitioner Family; Visit Provider Internal Medicine Hematology & Oncology
DX: D70.1 Agranulocytosis secondary to cancer chemotherapy (principal); T45.1X5A Adverse effect of antineoplastic and immunosuppressive drugs, initial encounter; C50.911 Malignant neoplasm of unspecified site of right female breast; Z17.421 Hormone receptor negative with human epidermal growth factor receptor 2 negative status
CPT/HCPCS: 36415; 36591; 80053; 84443; 84702; 85025; 96367; 96372; 96375; 96411; 96413; 96415; 96417; 99202; 99205; 99211; 99214; 99215; G0463; J9000; J9071; J1100; J1200; J1308; J1453; J1642; J2469; J2997; J7030; J7050; J9045; J9267; J9271; Q5101; Q5108

== ENCOUNTER 2025-06-28 12:14 | Outpatient (CLI) | payer BC, SELFPAY ==
--- NOTE | 2025-06-28 12:15 | CRLHL7_ITS ---
For Patients: As a result of the Century Cures Act, medical imaging exams and procedure reports are released immediately into your electronic medical record. You may view this report before your referring provider. If you have questions, please contact your health care provider. INDICATION: Follow-up fibroid and dermoid COMPARISON: MRI 12/23/2024 TECHNIQUE: 2D kerns-scale and color Doppler images were acquired of the pelvis using a transabdominal and transvaginal approach. Transvaginal imaging performed to better visualize the endometrial stripe and ovaries. FINDINGS: Left-sided uterine fibroid measures 4.9 x 2.7 x 4.0 cm. Uterus measures 7.6 cm in length by 4.0 cm in AP diameter by 5.9 cm in transverse dimension. The endometrial lining appears normal and measures 4.6 mm in composite thickness. The right ovary measures 3.0 x 2.7 x 2.7 cm in size and the left ovary measures 2.4 x 1.2 x 1.9 cm. The ovaries demonstrate normal arterial and venous blood flow on color Doppler analysis. There are no suspicious fluid collections within the cul-de-sac. Hypoechoic right ovarian structure measures 2.4 x 2.0 x 2.2 cm. IMPRESSION: Left uterine fibroid measures 4.9 cm. Right ovarian dermoid measures 2.4 cm. Dictated by Ata Quezada MD @ 06/28/2025 5:59:29 PM (Electronically Signed)
--- NOTE | 2025-06-28 13:00 | CRLHL7_ITS ---
For Patients: As a result of the Century Cures Act, medical imaging exams and procedure reports are released immediately into your electronic medical record. You may view this report before your referring provider. If you have questions, please contact your health care provider. BILATERAL BREAST MRI WITHOUT AND WITH GADOLINIUM CLINICAL HISTORY: RIGHT breast cancer with positive RIGHT axillary lymph node diagnosed in November 2024, currently on neoadjuvant chemotherapy. Evaluate response to neoadjuvant chemotherapy. INDICATION FOR BREAST MRI: Evaluate response to neoadjuvant chemotherapy. COMPARISON STUDIES: Diagnostic mammogram and RIGHT breast and axillary ultrasound 11/17/2024. Images from ultrasound-guided RIGHT breast and axillary lymph node biopsies and post-biopsy mammogram 11/27/2024. Breast MRI 12/07/2024. CONTRAST: 20 mL IV Dotarem. TECHNIQUE: The patient was positioned prone using a breast coil. Multiple imaging sequences were obtained using 1-1.5 mm thick slices with no gap. The image sequences include T2-weighted STIR in the axial plane, T1-weighted nonfat-saturated gradient echo in the axial plane, pre- and post-contrast T1-weighted FLASH 3D with fat suppression in the axial plane, and T1-weighted FLASH high resolution 3D with fat suppression in the sagittal plane. Image post-processing was performed on a [employer] workstation. Complex 3D rendering including maximum intensity projections (MIPS) and volumetric renderings were obtained to optimize visualization of the extent of pathology and relationship to the nipple, skin, and chest wall. This aids in determining feasibility of breast conservation surgery. Subtraction, multiplanar reconstruction, mean curve determination, and angiogenesis mapping were also performed. The study was technically adequate. FINDINGS: Amount of Fibroglandular Tissue: Heterogeneous fibroglandular tissue. Breast Background Enhancement: Mild. RIGHT Breast: Susceptibility artifact from the oval biopsy clip is seen at the 3 o`clock position, far posterior depth, 12 cm posterior to the nipple (note that the clip was along the posterior aspect of the mass after the original biopsy). Artifact from the HydroMARK biopsy clip is seen at 2 o`clock, 7 cm posterior to the nipple. The biopsy marking clips are by 5 cm on MRI. There is no residual abnormal enhancement associated with either of the marking clips or elsewhere within the breast. Previously described nipple retraction has resolved. LEFT Breast: There is no suspicious mass or non-mass enhancement. Lymph Nodes: There is susceptibility artifact in the RIGHT axilla from the biopsy clip adjacent to the previously biopsied metastatic lymph node. The biopsy lymph node and all other lymph nodes in the RIGHT axilla are now normal in morphology. No abnormal morphology lymph nodes bilaterally. No visible internal mammary lymph nodes. IMPRESSIONS AND RECOMMENDATIONS: 1. Excellent imaging response to neoadjuvant chemotherapy. No residual mass or abnormal enhancement at the sites of biopsied malignancy. RIGHT axillary lymph nodes, including the biopsied metastatic lymph node, are now normal in morphology. Continued surgical/oncologic management is recommended. 2. No MRI evidence of malignancy in the LEFT breast. No abnormal morphology lymph nodes on the LEFT. BI-RADS Category 6: Known Biopsy-Proven Malignancy. A lay language report of this examination will be provided to the patient. Dictated by Patrica Browning MD @ 07/02/2025 11:13:16 AM /sp SP/Dictated by: Patrica Browning MD @ 07/02/2025 11:36:00 AM (Electronically Signed)
== END 2025-06-28 12:15 | disposition home or self-care (01) ==
LOC: US 12:15
PROVIDERS: PCP Nurse Practitioner Family; Visit Provider Obstetrics & Gynecology
DX: C50.919 Malignant neoplasm of unspecified site of unspecified female breast (principal); D25.9 Leiomyoma of uterus, unspecified; N94.89 Other specified conditions associated with female genital organs and menstrual cycle; Z17.421 Hormone receptor negative with human epidermal growth factor receptor 2 negative status
CPT/HCPCS: 76830; 76856; 77049; A9575